=== PATIENT | male | born 1930 | race Caucasian/White ===

== ENCOUNTER 2018-04-01 | Inpatient (IN) | payer OTHER ==
[~2018-04-01] MED LIST: ADVAIR 250/501 EA INH; AMBIEN10 M1 PO; COUMADIN3 M1 PO; FLOMAX0.4 MG PO; HYZAAR 12.5 MG-1 TA1 PO; TRAMADOL HCL50 MG PO; ZOCOR20 MG PO
--- NOTE | ~2018-04-01 | PR ---
[place], [place] PROGRESS NOTE NAME: MARILYN MIXON UNIT #: [id number] ROOM: 316 DOCTOR: PRANEETH PUGA CNP BIRTHDATE: [birth year] DOS: 04/05/2018 CHIEF COMPLAINT: "I'm going home today." SUMMARY OF VISIT: The patient was interviewed as he sat in the dining area. He reports that he slept well last night. He reports that his appetite is good. He denies any depression or anxiety symptoms. He denies feeling agitated. He does continue to perseverate on the fact that he is going home with his daughter today and that he will call his family doctor to discharge him if I will not do so. MENTAL STATUS EXAMINATION: He is alert and oriented to person, place and time with some memory gaps. No adelfo or hypomania noted. No paranoia or delusions noted. No auditory or visual hallucinations noted. His mood was euthymic. No anxiety noted. PLAN: We will increase the patient's Namenda to 5 mg in the morning and 10 mg at bedtime. Plan for discharge on Friday. I will continue to engage the patient in individual and foy milieu activity. Continue on safety precautions and plan to return to the least restrictive environment when psychiatrically stable. Praneeth Puga CNP CM:PNTRANS [id number] PRANEETH PUGA CNP 04/05/182051 interface
--- NOTE | ~2018-04-01 | PR ---
[place], [place] PROGRESS NOTE NAME: MARILYN MIXON UNIT #: [id number] ROOM: 316 DOCTOR: PRANEETH PUGA CNP BIRTHDATE: [birth year] DOS: 04/04/2018 CHIEF COMPLAINT: "I am doing well." SUMMARY OF THE VISIT: The patient was interviewed as he was lying in his bed in his room. He reports that he slept well last night. He feels okay. He denies feeling anxious or depressed. He reports that his appetite is good. Staff reports that he has displayed no behaviors. He does, however, continue to isolate in his room at times. He has displayed some confusion while engaging in conversation. He reports to the staff that he would like to make a pillow and have it patented. MENTAL STATUS EXAMINATION: The patient is alert and oriented to person, place and time with some memory gaps. He is pleasant and cooperative with me. There are no signs of adelfo or hypomania. No delusions or paranoia noted. No auditory or visual hallucinations noted. His speech was clear with normal tone and rate. His eye contact was good. We will plan to increase his Exelon to 3 mg twice a day. We will continue to encourage the patient to engage in individual and foy milieu activity. We will continue fall and safety precautions. We will plan to return the patient to the least restrictive environment once he is considered psychiatrically stable. Praneeth Puga CNP CM:PNTRANS [phone] PRANEETH PUGA CNP 04/05/18 0403 interface
--- NOTE | ~2018-04-01 | DS ---
[place], [place] DISCHARGE SUMMARY NAME: MARILYN MIXON UNIT #: [id number] ROOM: 316 DOCTOR: FRED BARNETT MD BIRTHDATE: [birth year] DOS: 04/06/2018 CHIEF COMPLAINT: "I am going home today even if I have to walk." HISTORY OF PRESENT ILLNESS: This is an 87-year-old white male who was recently discharged from [facility] in [place]. He was receiving skilled care there and returned home with his daughter to whom he resides with. The patient was having increased behaviors well at [facility] and the family refused to admit him to the unit at that time and decided instead to take him home. His behaviors continued to escalate, however, at home and the daughter was having to call or take him to the Emergency Room daily. Most recently, he became so physically combative that she took him to the Emergency Room at [facility]. He was very erratic there and he was very confused. He was medically cleared and then sent to the unit for further psychiatric stabilization. SUMMARY OF THE HOSPITAL COURSE: The patient was admitted to the unit where he was started on Exelon capsules 1.5 mg twice daily, Celexa, and trazodone were discontinued in lieu of Remeron 15 mg at bedtime and he was also started on Namenda and the dose was increased accordingly. He tolerated these medications changes well. Exelon was eventually stabilized at 3 mg twice daily while Namenda at 15 mg a day, Remeron remained at 15 mg at bedtime. The patient had improved sufficiently to be discharged back into the daughter's care. Daughter did not want him placed into a prison, which is probably the most safest environment for him to be admitted to given the severity of his confusion. The patient was tolerating the medications well at the time of discharge: MENTAL STATUS: At the time of discharge, the patient was alert and oriented to person, possibly place and that he did not realize he was in the hospital, but not the name of the hospital. He was not oriented to time. Mood was relatively euthymic. Affect appropriate. There is no adelfo, hypomania or gross psychosis. He did process information slowly and short term memory was exceedingly poor. DISCHARGE DIAGNOSES: Intermittent explosive disorder, major depression, recurrent and Alzheimer dementia. DISPOSITION: The patient is returning home. His prescriptions have been escribed to the [facility] [place]. At the time of discharge, there was no acute medical issue and psychiatrically he was stable. [place], [place] DISCHARGE SUMMARY NAME: MARILYN MIXON UNIT #: [id number] ROOM: [facility] DOCTOR: FRED BARNETT MD BIRTHDATE: [birth year] FRED BARNETT MD CM:DISCHARG [id number] FRED BARNETT MD 04/06/18 1014 interface
--- NOTE | ~2018-04-01 | EKG ---
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
--- NOTE | ~2018-04-01 | WRIGHTHP ---
[place], [place] PATIENT HISTORY AND PHYSICAL EXAM NAME: MARILYN MIXON UNIT #: [id number] ROOM: 316 DOCTOR: PRANEETH PUGA CNP BIRTHDATE: [birth year] DOS: 04/02/2018 REASON FOR ADMISSION: The patient is confused and combative. CHIEF COMPLAINT: "I am going home today, even if I have to walk". HISTORY OF PRESENT ILLNESS: This is an 87-year-old white male who was discharged from [facility] four days ago, where he was receiving skilled care. He returned home with his daughter with whom he resides. The patient was having increased behaviors while at [facility]. The family had refused to admit him to the unit at that time and decided to take him home. However, his behaviors continued to escalate. He continued to be combative, so he was brought to the Emergency Room yesterday at the [facility]. Due to the patient's erratic behavior is putting himself at risk for harm; therefore, the decision was made once he was medically cleared to admit him to the Behavioral Health Unit for inpatient stabilization. He will also be able to engage in individual and foy milieu activity and then will return to the least restrictive environment when psychiatrically stable. PSYCHIATRIC HISTORY: Per the chart and the patient has a history of Alzheimer's dementia; however, he is not on any type of medications for this. His daughter reports that he has had some significant losses in the last few months, which include losing his driving privileges. He had a stroke and he lost his . REVIEW OF PSYCHIATRIC SYMPTOMS: A. Anxiety. The patient denies any anxiety. B. Depression. The patient reports that he is not depressed. He reports that he is happy. C. Delirium. No delirium present. D. Psychosis. The patient denies any psychotic symptoms. E. Adelfo. The patient does not display any overt adelfo or hypomania at this time. A. Legal status: The patient has no legal charges pending. B. Psychiatric risk assessment: The patient has a documented history of Alzheimer dementia. C. Violence risk assessment: The patient has no history of violence. D. Suicide risk assessment: The patient has no history of suicidality, any protective factors. The patient voices willingness and really needs to get better and reports that he has a supportive family to help him. FAMILY AND SOCIAL HISTORY: The patient denies any significant family history, family history of mental illness. SOCIAL HISTORY: The patient denies any illicit drug or alcohol use. PAST MEDICAL HISTORY: The patient has a history of a TIA, hypertension, arthrosclerotic heart disease, AFib, chronic obstructive pulmonary disease, gastroesophageal reflux disease, idiopathic gout, osteoarthritis, acute kidney failure, benign prostate hyperplasia, aphasia, malaise. He has a presence of [place], [place] PATIENT HISTORY AND PHYSICAL EXAM NAME: MARILYN MIXON UNIT #: [id number] ROOM: [facility] DOCTOR: PRANEETH PUGA CNP BIRTHDATE: [birth year] bilateral knee replacements and aorta, coronary bypass graft. He also has history of depression. ALLERGIES: INCLUDE CODEINE, FLAGYL, BANANAS, AND MILK. MEDICATIONS: Most recently, the patient has been on trazodone 50 mg at bedtime and Celexa 20 mg daily. LABORATORY DATA: Hemoglobin A1c is slightly elevated at 6.2. His ammonia level was normal at 24. His B12 is elevated at 1197. Vitamin D is normal at 62.8. His urine appears clear at this time. His H and H 12.1 and 35.8. Sodium 139, potassium 4.4, glucose slightly elevated at 113. PHYSICAL EXAMINATION: General appearance; the patient is well-developed, well-nourished white male that appears his stated age. Appearance; he was pleasant and cooperative with me. His attitude; he reports a positive desire to get better, so that he can return to home. Motor activity: No motor agitation or retardation noted. Speech was normal tone and rate. Mood was calm. Affect congruent with mood. Thought processing is relatively intact. Thought content within normal limits. Thought perception; no thought perception issues noted. Language; he speaks Estonian. Intellectual functioning was within normal limits. Memory function is short term, intermediate, and long-term memory are intact as evidenced by that he is aware, where he is, where he came from and where he lived. Orientation: He is alert and oriented to person, place and time with some mild gaps noted. Insight is fair. Judgment is fair. ASSETS AND LIST OF STRENGTH: The patient has a positive attitude to get better and go home. He does have a positive support system with his family. WEAKNESSES: Weaknesses include current need for adjustment due to loss of spouse. DIAGNOSES: History of Alzheimer dementia, intermittent explosive disorder. ASSESSMENT AND PLAN: We will start Exelon capsules 1.5 mg twice daily. Also, start Remeron 15 mg at bedtime. We will engage the patient in individual and foy milieu activity. We will maintain fall and safety precautions. Plan to return the patient to the least restrictive environment once he is considered psychiatrically stable. [place], [place] PATIENT HISTORY AND PHYSICAL EXAM NAME: MARILYN MIXON UNIT #: [id number] ROOM: [facility] DOCTOR: PRANEETH PUGA CNP BIRTHDATE: [birth year] Praneeth Puga CNP CM:HISPHYS:PATIENT HISTORY AND PHYSICAL EXAMINATION [id number] PRANEETH PUGA CNP 04/02/18 1219 interface
[2018-04-01 15:08] VITALS: BP 116/70
[2018-04-01 15:51] LABS: BASO % 0.2 % (0.0-1.0); EOS # 0.1 10*3/uL (0.0-0.4); EOS % 1.3 % (1.0-4.0); HEMATOCRIT 35.8 % (42.0-52.0); HEMOGLOBIN 12.1 g/dl (14.0-18.0); LYMPH # 1.4 10*3/uL (1.3-4.4); LYMPH % 12.4 % (27.0-41.0); MEAN CELL VOLUME 100.8 fl (80.0-94.0); MEAN CORPUSCULAR HGB 34.1 pg (27.0-31.0); MEAN CORPUSCULAR HGB CONC 33.8 g/dl (33.0-37.0); MEAN PLATELET VOLUME 10.5 fl (9.6-12.3); MONO # 0.5 10*3/uL (0.1-1.0); MONO % 4.1 % (3.0-9.0); NEUT % 81.5 % (47.0-73.0); PLATELET COUNT AUTOMATED 185 10*3/uL (130-400); RED BLOOD COUNT 3.55 10*6/uL (4.50-5.90); RED CELL DISTRI WIDTH 13.4 % (0-14.5); WHITE BLOOD COUNT 11.1 10*3/uL (4.8-10.8)
[2018-04-01 16:06] LABS: ACETAMINOPHEN (TYLENOL) < 5.0 ug/ml (10-30); ALKALINE PHOSPHATASE 84 U/L (45-117); BUN 20 mg/dl (7-24); CHLORIDE 106 mmol/L (98-107); CREATININE 1.42 mg/dL (0.70-1.30); ETHYL ALCOHOL < 3.0 mg/dl (<3); LIPASE 58 U/L (73-393); POTASSIUM 4.4 mmol/L (3.5-5.1); SGOT/AST 32 IU/L (3-35); SGPT/ALT 23 U/L (12-78); SODIUM 139 mmol/L (136-145); TOTAL PROTEIN 6.2 gm/dL (6.4-8.2)
--- NOTE | 2018-04-01 18:07 | NUR ---
Pt daughter, Karthik Dominguez , stated that is where she can be reached, Pt daughter lives with the pt.
[2018-04-01 18:49] LABS: BILIRUBIN NEGATIVE (NEGATIVE); BLOOD NEGATIVE (NEGATIVE); CLARITY CLEAR (CLEAR); COLOR YELLOW (YELLOW); GLUCOSE NEGATIVE (NEGATIVE); KETONE NEGATIVE (NEGATIVE); LEUKO ESTERASE NEGATIVE (NEGATIVE); NITRITE NEGATIVE (NEGATIVE); PH 5.5 (5.0-9.0); UROBILINOGEN 0.2 E.U./dl (0.2-1.0)
[2018-04-01 18:55] LABS: BACTERIA TRACE; EPITHELIAL CELLS 0-2; RBC 0-2 rbc/hpf (0-2); WBC 0-2 wbc/hpf (0-5)
--- NOTE | 2018-04-01 18:55 | NUR ---
MARILYN MIXON a 87 year old M admitted via wheel chair from the EMERGENCY ROOM as a emergency 72 hr. hold admission. Arrived on unit at 1855. ALLERGIES: codeine, bananas, milk, flagyl. Vital signs are: 97.2-70-18 134/67. The client signed the following forms with stated understanding: Authorization For The Release of Medical Information, Clothing List, Consent to Voluntary Admission and Hospitalization, Consent and Release Forms/Receipt of Rights, Acknowledgement of Advance Directive Information, Behavioral Health Consent Form, and Informed Consent of Medications. Admitted under the services of Dr. ANIBAL PINEDA,[facility]. A search was conducted and hazardous articles were removed. Client was oriented to the unit. JOAQUIN VALLE
[2018-04-01 18:57] LABS: URINE AMPHETAMINES < 1000 (1000ng/ml); URINE BARBITURATES < 200 (200ng/ml); URINE BENZODIAZEPINES < 200 (200ng/ml); URINE CANNABINOIDS (THC) < 50 (50ng/ml); URINE COCAINE < 300 (300ng/ml); URINE METHADONE < 300 (300ng/ml); URINE OPIATES < 300 (300ng/ml); URINE PHENCYCLIDINE < 25 (25ng/ml)
[2018-04-01 18:58] VITALS: BP 134/67
--- NOTE | 2018-04-01 19:14 | NUR ---
CALL PLACED TO DAUGHTER ARLYN RIVAS TO CLARIFY MEDICATIONS THAT PATIENTIS CURRENTLY ON, [facility] GET UPDATED MEDICATION LIST. DAUGHTER WILL COME IN WITH HAND WRITTEN MEDICATION LIST.
[2018-04-01 19:38] VITALS: BP 134/67
[2018-04-01 20:00] VITALS: BP 134/67
--- NOTE | 2018-04-01 21:00 | NUR ---
Dr. Cunningham on floor and was then notified of patient's admission and consult for medical management. Dr. Cunningham came and examined patient.
--- NOTE | 2018-04-01 21:10 | NUR ---
Dr. Cunningham examining patient. This nurse showed him the skin tear on patient's left forearm and no new orders received at this time.
[2018-04-01] MEDS ORDERED: ELIQUIS2.5 M1 PO (21:24)
[2018-04-01] MEDS ORDERED: TRAZODONE50 MG PO (21:25)
[2018-04-01] MEDS ORDERED: CELEXA20 MG PO (21:27)
[2018-04-01] MEDS ORDERED: PREDNISONE5 MG PO (21:28)
[2018-04-01] MEDS ORDERED: LOPRESSOR25 MG PO (21:29)
[2018-04-01] MEDS ORDERED: KLOR-CON M2020 ME1 PO (21:30)
[2018-04-01] MEDS ORDERED: APRESOLINE25 MG PO (21:31)
[2018-04-01] MEDS ORDERED: OLANZAPINE2.5 MG PO (21:32)
[2018-04-01] MEDS ORDERED: LOSARTAN POTASS50 M1 PO (21:33)
[2018-04-01] MEDS ORDERED: KEPPRA500 MG PO (21:33)
[2018-04-01] MEDS ORDERED: ALLOPURINOL300 MG PO (21:35)
[2018-04-01] MEDS ORDERED: PRAVACHOL40 MG PO (21:35)
[2018-04-01] MEDS ORDERED: TAMSULOSIN HCL0.4 MG PO (21:36)
[2018-04-01] MEDS ORDERED: BREO ELLIPTA 11 EACH INH (21:36)
[2018-04-01] MEDS ORDERED: ATIVAN0.5 MG PO (21:37)
[2018-04-01] MEDS ORDERED: CEFUROXIME AXE250 MG PO (21:38)
[2018-04-01] MEDS ORDERED: ASPIRIN ADULT L81 M1 PO (21:38)
[2018-04-01] MEDS ORDERED: GOOD NEIGHBOR P20 MG PO (21:38)
--- NOTE | 2018-04-01 23:33 | NUR ---
SHAILA NUÑEZ NOTIFIED OF ADMISSION.
--- NOTE | 2018-04-02 06:36 | NUR ---
Patient was awake throughout shift.
--- NOTE | 2018-04-02 06:43 | NUR ---
MARILYN MIXON [id number] Please refer to the physician's history and physical for past medical history, comorbid conditions, and allergies. Diagnosis: INTERMITTENT EXPLOSIVE DISORDER Spencer Score: 18,AT RISK WOUND DESCRIPTIONS: Location of the wound: Left forearm Type of wound: skin tear Thickness: Partial Size: 0.5cm x 6.1cm x 0.1cm Tunneling: none Undermining: none Sinus Tract: none Presence of Exudate: Serosanguineous Amount: Light Color: Red Odor: None Periwound Skin Appearance: Normal Wound edges: approximated Pain (associated with wound): none at time of assessment How does patient state this happened? pt unclear on how this happened Surface the patient is resting on: Proform SKIN PREVENTION RECOMMENDATION: 1. Pressure redistribution support surface as appropriate 2. Elevate heels 3. Remove boots/TEDS every shift and reapply 4. Head of bed 30 degrees as tolerated 5. Assess nutrition and hydration 6. Manage moisture 7. Avoid the use of containment devices while in bed 8. Use absorptive products on surfaces limit layers of linens on bed 9. Turn and reposition every 1-2 hours in bed and every 1 hour in chair as tolerated 10. Weight shifts every 15 minutes while up in chair 11. Offloading with pillows or device to keep heels elevated off bed 12. Monitor skin at least every shift 13. Inspect under medical devices twice a day WOUND TREATMENT RECOMMENDATIONS: skin tear guidelines: Cleanse left forearm with nss and apply sureprep around the wound hydrogel to wound bed and cover with optifoam gentle.
[2018-04-02 07:26] LABS: CHOLESTEROL 123 mg/dL (<200); HDL CHOLESTEROL 37 mg/dl (40-60); LDL CHOLESTEROL 65 mg/dL (9-159); TRIGLYCERIDES 104 mg/dl (<150); VLDL CHOLESTEROL 21 mg/dL (6-40)
[2018-04-02 07:49] VITALS: BP 109/63
--- NOTE | 2018-04-02 08:30 | NUR ---
Treatment Plan meeting with Ольга AGUIRRE, RN, AT and [facility]. Plan for discharge next week. Will call family and discuss discharge planning.
--- NOTE | 2018-04-02 08:51 | NUR ---
PATIENT DRANK 120CC OF MILK AND HAS ALLERGIES TO MILK. PATIENT STATES THAT HE GETS A RASH. DENIES ANY ITCHING OR DIFFICULTY BREATHING OR SWALLOWING. DR. MORALES NOTIFIED. DIET ORDER CHANGED WITH LIST OF ALLERGIES. WILL CONTINUE TO MONITOR.
[2018-04-02 09:38] LABS: VITAMIN D, 25-HYDROXY 62.8 ng/mL (30-100)
--- NOTE | 2018-04-02 09:45 | NUR ---
Dr. Aj notified of wound care recommendations.
--- NOTE | 2018-04-02 10:57 | NUR ---
Spoke with Pt. Daughter Mayela and advised that plan is for discharge next week. Plan is for patient to return home with his daughter.
--- NOTE | 2018-04-02 11:33 | NUR ---
AM GROUP THERAPY PT DID NOT ATTEND MORNING GROUP THERAPY. PT WAS IN BED SLEEPING AND THE NURSES REPORT INDICATED THAT HE GOT NO SLEEP LAST NIGHT. WILL ATTEMPT TO ASSESS PT AND SET GOALS THIS AFTERNOON.
--- NOTE | 2018-04-02 11:36 | NUR ---
PHYSICAL THERAPY PAtient respectfully declines PT this date. Thank you for this referral. Rosey French,PT
--- NOTE | 2018-04-02 11:38 | NUR ---
Occupational Therapy evaluation attempted this date. Patient respectfully declines at this time. Will follow up at a later date/time. Thank you for this referral, Leonela Robison OTR/L
--- NOTE | 2018-04-02 13:16 | NUR ---
CALLED INSURANCE AND PT WAS APPROVED FROM 04/01-04/06 THEN PT INSURANCE TERMS. AUTH NUMBER IS [id number].
--- NOTE | 2018-04-02 14:06 | NUR ---
CALLED DAUGHTER AND TALKED WITH HER ABOUT PT INSURANCE TERMING AFTER 04/06. SHE STATES SHE DOES NOT KNOW WHY IT WOULD AND WILL CALL THEM TO GET ANSWERS.
--- NOTE | 2018-04-02 15:24 | NUR ---
PM GROUP THERAPY PT DID NOT ATTEND AFTERNOON GROUP THERAPY. PT WAS IN BED SLEEPING WITH COVERS PULLED OVER HIS HEAD. MILIEU REPORTED PT DIDN'T EVEN WANT TO GET UP FOR LUNCH. WILL ATTEMPT ASSESSMENT AND GOALS TOMORROW AM.
--- NOTE | 2018-04-02 15:43 | NUR ---
psychosocial hx completed this date.
--- NOTE | 2018-04-02 16:00 | NUR ---
PATIENT IS ALERT AND ORIENTED TO PERSON, PLACE, TIME AND SITUATION WITH INTERMITTANT. MOOD IS IRRITABLE. DENIES ANY HALLUCINATIONS, DELUSIONS, HI/SI OR PAIN. 1 PERSON STAND BY WITH ACTIVITIES OF DAILY LIVING, CONTINENT OF BOWEL AND BLADDER. SET UP FOR MEALS, INTAKES ARE FAIR WITH ADEQUATE FLUIDS. MEDICATION COMPLAINT WITH EDUCATION PROVIDED. Q 15 MINUTE SAFETY CHECKS MAINTAINED. ASSISTED PATIENT WITH TOILETING NEEDS. SHOWER UP AT SINK. PATIENT JESSICA HE IS LEAVING THE HOSPITAL TO GO TO [facility] FOR [facility] D[facility], WANT DAUGHTER CALLED. PATIENT ADVISED/INFORMED THAT HE WAS IN THE HOSPITAL AND THE DOCTOR DID NOT DISCHARGE HIM YET. PATIENT CONTINUED TO GATHER BELONGING PRIOR TO LEAVING ROOM. PATIENT SELF PROPELLED TO DINING ROOM, DID NOT LIKE WHAT WAS ON TV THEN PROCEEDED DOWN THE COOK TO THE DOORS, ATTEMPTING TO EXIT THE BUILDING AND PRESS NUMBERS ON ALONSO PAD. ONE ON ONE PROVIDED, REDIRECTION PROVIDED AND INEFFECTIVE. PATIENT ASSISTED BACK TO DINING ROOM AND TOLD HIM IT WAS TIME FOR HIS MEDICATIONS. PRN ATIVAN 1MG GIVEN PO AT THIS TIME. CONTINUE TO MONITOR MOOD/AGGRESSION AND PROVIDE ONE ON ONE AND REDIRECTION. P: ATTEMPTING TO EXIT BUILDING I: TOILETING NEEDS PROVIDED, REDIRECTION, ONE ON ONE, CHANGE OF ENVIRONMENT R: INFEFFECTIVE P: PRN ATIVAN 1MG PO GIVEN AT THIS TIME.
--- NOTE | 2018-04-02 16:40 | NUR ---
PATIENT CONTINUES TO BE ANGRY, TELLING NURSE HE IS GETTING OUT OF HERE. PATIENT POUR URINAL IN HIS BED. ATTEMPTING TO TAKE PERSONAL ALARM OFF BED AND STATED HE WAS GOING TO THROW IT THROUGH THE WINDOW. PATINT DROPPED URINAL REQUIRING ASSISTANCE BE NURSE TO PICK URINAL UP. PATIENT ASSISTED BACK TO DINING ROOM. PATIENT STARTED EATING DINNER.
--- NOTE | 2018-04-02 17:05 | NUR ---
PRN ATIVAN SLIGHTLY EFFECTIVE, WILL CONTINUE TO MONITOR MOOD/BEHAVIORS.
--- NOTE | 2018-04-02 17:33 | NUR ---
AFTER DINNER PATIENT STARTED EATING PIE, REQUESTING FOR ICE CREAM, NURIS CALLED, INFORMED PATIENT OF ALLERGIES AND THAT WE COULD GET TIME SERBERT. PATIENT SELF PROPEL TO THE EXIT DOOR, PRESSING ON ALONSO PAD, PATIENT REDIRECTED AWAY FROM DOOR. PATIENT REQUESTING TO CALL DAUGHTER. CALL PLACED TO DAUGHTER, MOTHER INFORM STAFF SHE WAS ON HER WAY TO HOSPITAL TO VISIT. PATIENT INFORMED. PATIENT SITTING AT TABLE EATING APPLE PIE AND SERBERT AT THIS TIME.
--- NOTE | 2018-04-02 18:02 | NUR ---
PATIENT VISITING WITH DAUGHTER, STARTED TO DEMANDING THAT HE WAS LEAVING. SELF PROPELLING TO THE DOOR. PATIENT REDIRECTED TO COME BACK TO THE DINING ROOM TO VISIT WITH DAUGHTER. THAN PATIENT WHEN OVER TO SINK, GETTING SEVERAL PIECES OF PAPER TOWELS STATING THE TABLE NEEDED WIPED OFF. TABLES CLEANED OFF FOR PATIENT. THEN PATIENT WHEN OVER TO ALARM ON WALL FOR STAFF ASSISTANCE. PATIENT REDIRECTED AT THIS TIME BY NURSE. PATIENT REQUESTING FOR STEAK. OFFER PIZZA. ORDER WAS PLACE. ENCOURAGED PATIENT TO SIT AND VISIT WITH DAUGHTER. PATIENT WATCHING TV WITH DAUGHTER AT THIS TIME.
--- NOTE | 2018-04-02 18:30 | NUR ---
PATIENT REQUESTING TO LAY DOWN. PATIENT ASSISTED TO ROOM, CHANGED INTO GOWN AND ASSISTED TO BED ALL ALARMS IN PLACE.
[2018-04-02 20:06] VITALS: BP 121/73
[2018-04-02 20:08] VITALS: BP 121/73
--- NOTE | 2018-04-03 00:46 | NUR ---
P: CONFUSION, MEDICATION COMPLIANCE. I: REORIENT AND REDIRECT, PROVIDED 1:1 TO EXPRESS FEELINGS, EDUCATE ON HS MEDICATIONS. R: POSITIVE FEEDBACK ON MEDICATION EDCUATION, MEDICATION COMPLIANT WITHOUT DIFFICULTY. PATIENT ALERT AND ORIENTED X3. P:CONTINUE TO REORIENT AND REDIRECT NEEDED. PROVIDE 1:1 TO EXPRESS FEELINGS. ENCOURAGE MEDICATION COMPLIANCE.
--- NOTE | 2018-04-03 01:05 | NUR ---
24 HOUR CHART CHECK COMPLETED.
--- NOTE | 2018-04-03 05:41 | NUR ---
PATIENT OBSERVED ON Q 15 MIN CHECKS TO HAVE SLEPT APPROX 6 HOURS WITH X3 AWAKENINGS TO ASK STAFF FOR VARIOUS WANTS AND DEMANDS (BLANKET, LOTION, FEET TO BE COVERED UP). NO SIGNS OR SYMPTOMS OF DISTRESS NOTED.
[2018-04-03 07:24] VITALS: BP 118/72
--- NOTE | 2018-04-03 08:00 | NUR ---
Recommend follow up for wound care in outpatient setting patient refused at this time.
--- NOTE | 2018-04-03 08:34 | NUR ---
CALLED DTR REGARDING LISTED MILK ALLERGY. PER DTR, PT DRINKS MILK AND CONSUMES MILK RELATED PRODUCTS AT HOME AND THAT ALLERGY IS ACTUALLY A MILD LACTOSE INTOLERANCE THAT "JUST GIVES HIM GAS." ALLERGY SCREEN UPDATED WITH SUPPLEMENTAL INFORMATION.
--- NOTE | 2018-04-03 08:41 | NUR ---
SHIFT CHART CHECK COMPLETED.
--- NOTE | 2018-04-03 10:55 | NUR ---
PHYSICAL THERAPY PAtient evaluated on three, full evaluation to follow. Continue with PT as per plan of care with fall, unit three and recent aggitated behavior ( no inappropiate behavior noted with evaluation at this date). Will require 24 hour family assist and home health RN and PT with aides prn. PAtient is moderate complexity via chart review, tests and evaluation: [id number]. Thank you for this referral. Rosey French,PT
--- NOTE | 2018-04-03 11:09 | NUR ---
Mr Holcomb was evaluated by occupational therapy this date to assess his ability to complete ADL's and functional transfers. Mr Holcomb requests to be called [facility]. He requires supervision for bedmobility with head of bed elevated. He has fair standing endurance and requires min assist with lower body ADL's. Lexx usually uses a credit or loans officer and sock aide at home secondary to back pain. Continued occupational therapy is recommended while the patient is in the hospital to improve his dynamic balance, endurance, and ADL independence. Discharge home with family assist and C. Judy Nelson OTR/L
--- NOTE | 2018-04-03 11:14 | NUR ---
Left Message for Pt. Daughter on Home Phone to discuss discharge Planning.
--- NOTE | 2018-04-03 11:42 | NUR ---
AM GROUP THERAPY PT ENTERED GROUP LATE DUE TO OT. PT PARTICIPATED IN GROUP ACTIVITIES. PT EXHIBITED NO AGGRESSION OR AGITATION DURING GROUP. PT WAS TALKATIVE WITH STAFF AND PEERS. PT WILL CONTINUE TO ATTEND AND PARTICIPATE IN GROUP.
--- NOTE | 2018-04-03 12:50 | NUR ---
PT ALERT AND ORIENTED TO PERSON AND TIME THIS SHIFT.(P) STATES HE IS AT [facility] AND THAT HE IS HERE BECAUSE HE "BROKE MY BACK, AND MY NECK, AND MY LEG, AND MY HEAD." ST/LT MEMORY GAPS NOTED. REQUIRES ENCOURAGEMENT FROM STAFF TO COMPLETE SIMPLE TASKS INDEPENDENTLY. HOWEVER, PT HAS BEEN PLEASANTLY CONFUSED THIS SHIFT WITHOUT AND AGGRESSION, AGITATION, OR COMBATIVE BEHAVIORS. MEDICATION COMPLIANT WITHOUT DIFFICULTY. (I) PT REORIENTED TO ELCH BUT NOT RECEPTIVE TO REALITY PRESENTATION REGARDING MULTIPLE RECENT BROKEN BONES. (P) ENCOURAGE GROUPS AND REORIENT NEEDED.
--- NOTE | 2018-04-03 15:22 | NUR ---
PER MICHELE FROM [facility], PT APPROVAL HAS BEEN EXTENDED UNTIL Apr WITH NEXT REVIEW DATE IS Apr WITH MICHELE AT [phone].
--- NOTE | 2018-04-03 15:23 | NUR ---
Referral to [facility].
--- NOTE | 2018-04-03 15:35 | NUR ---
MUSIC AND PUZZLES PT CHOSE NOT TO ATTEND AFTERNOON GROUP THERAPY. HIS NURSE TRIED TO ENCOURAGE HIM TO ATTEND BUT PT CHOSE TO STAY IN BED AND NAP.
--- NOTE | 2018-04-03 16:59 | NUR ---
WOUND CARE COMPLETED FOR SKIN TEAR TO LEFT FA. PT TOLERATED WELL.
--- NOTE | 2018-04-03 18:02 | NUR ---
PT HAS BEEN NAPPING INTERMITTENTLY ALL T/O THE DAY DESPITE ENCOURAGEMENT FROM STAFF. REFUSED AFTERNOON GROUP WELL. PERIODS OF CONFUSION WITH ST MEMORY GAPS CONTINUE.
--- NOTE | 2018-04-03 18:22 | NUR ---
UPDATE GIVEN TO DTR AT THIS TIME. ALL QUESTIONS ANWSERED.
[2018-04-03 19:44] VITALS: BP 131/71
--- NOTE | 2018-04-03 21:32 | NUR ---
P-MEMORY GAPS, CONFUSION, I-ACCESS ORIENTATION, PROVIDED 1:1, PROVIDE REORIENTATION, PROVIDE PROMPTS & CUES, ADMINISTER HS MEDICATIONS R-PT VERBAL & PLEASANT, ALERT & ORIENTED TO PERSON & TIME, RECEPTIVE TO REORIENTATION WITH MEMORY GAPS, DENIES FEELING DEPRESSED. STATED HE HAD A WONDERFUL DAY & IS FEELING GREAT. RECEPTIVE TO PROMPTS & CUES, COMPLIANT WITH HS MEDS TAKING THEM WHOLE. PT STATED THAT HE IS GOING TO MAKE AN INVENTION OF A [facility] WITH A 4 INCH HOLE IN THE [facility] SO THEY COULD GO TO BED WITH THEIR JEWELRY ON. STATED THAT HE IS GOING TO MAKE ABOUT $5,000 FOR HIS INVENTION. P-CONTINUE TO MONITOR FOR CONFUSION, ORIENTATION & SLEEP, REDIRECT NEEDED
--- NOTE | 2018-04-03 22:10 | NUR ---
24 HR chart check completed.
--- NOTE | 2018-04-04 06:37 | NUR ---
PT HAS SLEPT THROUGHOUT THE NIGHT PAST 2330.
[2018-04-04 07:34] VITALS: BP 136/69
[2018-04-04 07:35] VITALS: BP 136/69
--- NOTE | 2018-04-04 09:12 | NUR ---
PT WAS MEDICATION COMPLIANT WITHOUT DIFFICULTY THIS MORNING. ALERT AND ORIENTED WITH (P) PERIODS OF CONFUSION AND MEMORY GAPS NOTED. PT STATING "I'M ALL BETTER, MY DAUGHTER WILL BE PICKING ME UP TODAY. NAPPING IN BED THIS MORNING AFTER BREAKFAST (I) DESPITE ENCOURAGEMENT FROM STAFF. (R) REMAINS ISOLATIVE TO ROOM. TOOK OFF ALL HIS CLOTHES AND IS LAYING IN BED WITH A BRIEF OFF, REFUSED TO ALLOW STAFF TO ASSIST HIM IN GETTING DRESSED. (P) CONTINUE TO ENCOURAGE GROUP THERAPY AND SOCIAL INTERACTIONS WITH PEERS THROUGHOUT THE DAY. REORIENT NEEDED.
--- NOTE | 2018-04-04 12:52 | NUR ---
DTR IN AT THIS TIME FOR VISIT. PT BECOMING INCREASINGLY CONFUSED AND THINKS HE IS GOING HOME WITH DTR TODAY DESPITE REORIENTATION MULTIPLE TIMES WHICH IS ONLY EFFECTIVE FOR <3 MINUTES. PT ALSO VOICING GRANDIOSE DELUSIONS THAT HE WAS JUST ON THE PHONE WITH THE PATENT OFFICE AND INVENTED A NEW PILLOW. PT ALSO TELLING DTR "I WAS JUST ON THE PHONE TALKING TO THE PUMP STITCHER DELMI I AM SUEING ABOUT FOUR PEOPLE WHICH SHOULD BRING IN ABOUT SIXHUNDRED MILLION. I WANT TO GIVE FIVEHUNDRED MILLION TO EACH OF YOU KIDS AND DONATE THE REST." REALITY PRESENTATION ONLY AGITATED PT. HAVE REDIRECTED PT BACK TO VISITING ROOM 5+ TIMES DUE TO CONFUSION. WILL CONTINUE TO MONITOR.
--- NOTE | 2018-04-04 13:16 | NUR ---
DAUGHTER LEFT EARLY DURING VISITATION DUE TO PATIENTS INCREASING AGITATION AND CONFUSION. STAFF NO LONGER ABLE TO REDIRECT AND DIVERT PATIENT BACK TO VISIT.
--- NOTE | 2018-04-04 15:49 | NUR ---
PT RESTING IN BED WITH EYES OPEN AT THIS TIME. ENCOURAGED TO PUT HIS CLOTHES BACK ON HE OFTEN REMOVES CLOTHING AFTER ENTERING HIS ROOM.
--- NOTE | 2018-04-04 16:12 | NUR ---
PT TOOK OFF DRESSING TO LEFT FA ST. WOUND CARE COMPLETED PER ORDERS. NEW DRESSING APPLIED.
[2018-04-04 19:15] VITALS: BP 135/75
--- NOTE | 2018-04-04 23:27 | NUR ---
P: PLEASANTLY CONFUSED. ORIENTED TO PERSON AND TIME ONLY. I: REORIENT PATIENT TO PLACE AND SITUATION FREQUENTLY. PROVIDE MEDICATION AND EDUCATION. Q15 MINUTE CHECKS MAINTAINED FOR SAFETY. R: PATIENT WOULD REMEMBER REORIENTATION FOR A FEW MINUTES AND WOULD BECOME CONFUSED AGAIN. PATIENT MEDICATION COMPLIANT AND VERBALIZED UNDERSTANDING OF MEDICATIONS. P: CONTINUE TO REORIENT PATIENT WHEN NECESSARY. PROVIDE EDUCATION WITH EACH MED PASS. Q15 MINUTE CHECKS MAINTAINED FOR SAFETY. FALLING STAR PROGRAM MAINTAINED WITH ALARMS ACTIVATED AND ON PATIENT. SEIZURE PRECAUTIONS IN PLACE.
--- NOTE | 2018-04-05 00:57 | NUR ---
24 HR chart check completed.
--- NOTE | 2018-04-05 04:50 | NUR ---
Q15 MINUTE CHECKS MAINTAINED THROUGHOUT THE NIGHT. PATIENT SLEPT APPROXIMATELY 8 HOURS OF UNINTERRUPTED SLEEP.
[2018-04-05 07:27] VITALS: BP 142/75
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
--- NOTE | 2018-04-05 12:40 | NUR ---
P: PT BELEIVES HE CAN GO HOME TODAY, SITTING BY MAIN ENTRAINCE WAITING FOR OTHERS TO COME THROUGH DOOR TO GET OUT OF IT. I: STAFF REDIRECTING WITH 1:1 PT, CALLED HIS DAUGHTER TO TALK TO HIM PER HIS REQUEST, TOILETING, LUNCH, DISTRACT R: PT BECAME MORE AGITATED, INCREASED EXIT SEEKING, P: PROVIDE DISTRACTION, DECREASE STIMULATION
--- NOTE | 2018-04-05 13:31 | NUR ---
P: PT COMBATIVE AT DOORWAYS ATTEMPTING TO EXIT DOORS KICK AT STAFF I:DARRYL ALMAZAN, DUE TO REFUSES PO R: PT TOLERATED WITHOUT DIFFICULTY P: CONTINUE TO MONITOR FOR MEDICAITON EFFECTIVENESS
--- NOTE | 2018-04-05 14:27 | NUR ---
PT RESTING QUIETLY IN ALFIE CHAIR, PER HIS REQUEST AT THIS TIME. DARRYL SMYTH
--- NOTE | 2018-04-05 15:44 | NUR ---
Shift chart check completed. PT UP TO WHEEL CHAIR PROPELLING SELF SHORT DISTANCES
--- NOTE | 2018-04-05 15:59 | NUR ---
PM GROUP, STORY, ART PT ATTENDED BUT CHOSE NOT TO PARTICIPATE.PT DID INTERACT WITH STAFF WHEN STAFF READ THE STORY. PT PLEASANT WITH NO SEXUALLY INAPPROPRIATE REMARKS OR ACTIONS. PT WILL CONTINUE TO ATTEND AND BE ENCOURAGED TO PARTICIPATE IN FUTURE GROUP SESSIONS.
--- NOTE | 2018-04-05 17:52 | NUR ---
P:PT AGGRESSIVE WITH STAFF WHEN DAUGHTER IN FOR VISIT. PT SAW DAUGHTER AND IMMEDIATLEY ATTEMPTED TO TAKE HER TOWARD THE EXITS STATING, "MY DR SAID I COULD LEAVE" I: ATTEMPTED TO REORIENT PT WITH ASSIST OF DAUGHTER EXPLAINING THAT HE WAS NOT TO LEAVE AT THIS TIME AND THAT HE WAS STILL TO BE HERE FOR THE NIGHT DUE TO HIS MENTAL HEALTH WAS NOT SAFE TO BE AT HOME AT THIS TIME. R: PT BEGAN YELLING WOULD NOT ACKNOWELEDGE HIS DAUGHTER, AND STATED I CALLED MY DOCTOR TODAY, HE SAID I COULD LEAVE, (PT DID BELIEVE HE SPOKE WITH HIS PCP DUE TO HE HAD USED HIS HAND A PHONE SEVERAL TIMES THROUGHOUT THE SHIFT) DAUGHTER ASSISTED OFF UNIT TO INCREASE BEHAVIOR AND SHE DID NOT WANT TO CONTINUE THE VISIT. PT THEN ATTEMPTED TO LILLY HIS CHAIR INTO THIS NURSE LEG WITH PURPOSE, PT YELLED AT STAFF STATING "YOU ARE ALL WHORES" P: PT GIVEN IM GEODON DUE TO INCREASED ANXIETY AND AGITATION AT THIS TIME.
[2018-04-05 19:54] VITALS: BP 148/72
--- NOTE | 2018-04-05 22:18 | NUR ---
P- PATIENT HAS INTERMITTENT CONFUSION WITH DELUSIONS. PATIENT IS ALERT TO PERSON,PLACE AND TIME. PATIENT STATED HE CALLED HIS DAUGHTER AND TOLD HER TO BRING THE HELICOPTER TOMORROW SO HE COULD GO HOME. I-REORIENT PATIENT TO TREATMENT PLAN,REORIENT PATIENT TO REALITY AND CONTINUE TO COMMUNICATE WITH PATIENT 1:1. PROVIDE MEDICATIONS ORDERED. R-PATIENT WAS COMPLIANT WITH HIS MEDICATIONS. PATIENT CALM AT THIS TIME. P-CONTINUE TO MONITOR BEHAVIOR AND REDIRECT NEEDED.
--- NOTE | 2018-04-06 00:21 | NUR ---
24 HR chart check completed.
--- NOTE | 2018-04-06 06:11 | NUR ---
PATIENT SLEPT APPROX. 8 HOURS THROUGHOUT SHIFT.
--- NOTE | 2018-04-06 07:00 | NUR ---
OT NOTE Attempted to see pt this A.M. for OT session and upon arrival pt was supine in bed. Pt identified by name and . Pt declined session at this time stating "I am going home today so don't bother with me anymore today." Will check back at a later time/date. TARSHA Joyce/Major
[2018-04-06 07:24] VITALS: BP 144/71
--- NOTE | 2018-04-06 08:30 | NUR ---
Treatment Plan meeting with Dr. Riley, RN, AT and Alterations Workroom Clerk. Plan for discharge today
--- NOTE | 2018-04-06 09:10 | NUR ---
PHYSICAL THERAPY Patient is still in bed and would like to take her morning medications before doing therapy. Will check back later. This was a 8:40 AM. CHICHO TIJERINA SANFORIZING MACHINE OPERATOR
[2018-04-06] MEDS ORDERED: MEMANTINE HCL10 MG PO (09:39)
[2018-04-06] MEDS ORDERED: MIRTAZAPINE15 M2 PO (09:39)
[2018-04-06] MEDS ORDERED: NAMENDA-5 PO (09:39)
[2018-04-06] MEDS ORDERED: RIVASTIGMINE TAR3 M1 PO (09:39)
--- NOTE | 2018-04-06 11:45 | NUR ---
AM GROUP, GAES PT UNABLE TO ATTEND DUE TO PREP FOR DISCHARGE. PT WILL BE DISCHARGED FROM U TODAY.
--- NOTE | 2018-04-06 11:59 | NUR ---
Spoke with Bri at [facility]. Advised of Patient discharge today. Bri states that she will try for SOC date 04/07/18. Faxed Updates to [facility].
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
--- NOTE | 2018-04-06 14:26 | NUR ---
REVIEWED PAPER WORK WITH PATIENT, TOILETED AND ASSISTED VIA EMS SERVICES TO [facility] FOR TRANSPORT HOME AT THIS TIME.
--- NOTE | 2018-04-06 14:40 | NUR ---
PHYSICAL THERAPY CO-SIGN I approve of the Phyical Therapy notes written above. LAST CHU PT
--- NOTE | 2018-04-07 07:51 | NUR ---
OCCUPATIONAL THERAPY CO-SIGN I approve of the Occupational Therapy notes written above. TRISTIAN MI OTR/Major
== END 2018-04-06 14:26 | disposition other institution (70) | DRG 56 ==
PROVIDERS: Physician Assistant; ADMIT Psychiatry & Neurology Psychiatry
DX: G30.9 Alzheimer's disease, unspecified (principal); N17.0 Acute kidney failure with tubular necrosis; F23 Brief psychotic disorder; F33.9 Major depressive disorder, recurrent, unspecified; I25.810 Atherosclerosis of coronary artery bypass graft(s) without angina pectoris; F63.81 Intermittent explosive disorder; R73.9 Hyperglycemia, unspecified; I10 Essential (primary) hypertension; J44.9 Chronic obstructive pulmonary disease, unspecified; K21.9 Gastro-esophageal reflux disease without esophagitis; M10.00 Idiopathic gout, unspecified site; M19.90 Unspecified osteoarthritis, unspecified site; I48.0 Paroxysmal atrial fibrillation; N40.0 Benign prostatic hyperplasia without lower urinary tract symptoms; D53.9 Nutritional anemia, unspecified; D72.825 Bandemia; Z96.653 Presence of artificial knee joint, bilateral; F02.80 Dementia in other diseases classified elsewhere, unspecified severity, without behavioral disturbance, psychotic disturbance, mood disturbance, and anxiety; Z88.1 Allergy status to other antibiotic agents; Z88.8 Allergy status to other drugs, medicaments and biological substances; Z91.018 Allergy to other foods; Z86.73 Personal history of transient ischemic attack (TIA), and cerebral infarction without residual deficits; Z95.1 Presence of aortocoronary bypass graft; Z95.5 Presence of coronary angioplasty implant and graft; Z79.899 Other long term (current) drug therapy

== ENCOUNTER 2018-04-07 01:45 | Inpatient (IN) | payer MEDICARE ==
[2018-04-07] VITALS (7 sets, daily range): BP systolic 105–152; BP diastolic 54–78
[~2018-04-07] VITALS: Ht 182.9 cm; Wt 108.4 kg
--- NOTE | ~2018-04-07 | EKG ---
[place], [place] ELECTROCARDIOGRAM REPORT NAME: MARILYN MIXON UNIT #: [id number] ROOM: [place] [address] DOCTOR: JORGE DRAFT REPORT BIRTHDATE: [birth year] [facility] Test Date: 2018-04-16 Test Time: 06:54:58 Pat Name: MARILYN MIXON Department: Room: [place] [address] Gender: M Proposal Consultant: Tanvi Pugh : 1930 Requested By: LONG GAMBOA Order Number: [id number] Reading MD: Evan Milton MD Measurements Intervals [place] Rate: 70 P: [place]: QRS: -39 QRSD: 100 T: 4 QT: 384 QTc: 415 Interpretive Statements Atrial fibrillation Left axis deviation Incomplete right bundle branch block Baseline wander in lead(s) V6 Compared to ECG 04/07/2018 03:01:09 No significant change Electronically Signed On 04-16-2018 8:09:19 PST by Evan Milton MD CM:EKGRPT:ELECTROCARDIOGRAM REPORT [id number] LONG ROSENTHAL DRAFT REPORT LONG GAMBOA DO
--- NOTE | ~2018-04-07 | EKG ---
[place], [place] ELECTROCARDIOGRAM REPORT NAME: MARILYN MIXON UNIT #: [id number] ROOM: [place] [address] DOCTOR: JORGE DRAFT REPORT BIRTHDATE: [birth year] [facility] Test Date: 2018-04-16 Test Time: 04:24:30 Pat Name: MARILYN MIXON Department: Room: [place] [address] Gender: M Boiler Installer: Lara Murray : 1930 Requested By: LONG GAMBOA Order Number: [id number] Reading MD: Evan Milton MD Measurements Intervals [place] Rate: 88 P: [place]: QRS: -32 QRSD: 101 T: 4 QT: 373 QTc: 452 Interpretive Statements Atrial fibrillation Left axis deviation Incomplete right bundle branch block Low voltage, precordial leads RSR' in V1 or V2, probably normal variant Compared to ECG 04/07/2018 03:01:09 No significant change Electronically Signed On 04-16-2018 8:08:20 PST by Evan Milton MD CM:EKGRPT:ELECTROCARDIOGRAM REPORT [id number] LONG ROSENTHAL DRAFT REPORT LONG GAMBOA DO
--- NOTE | ~2018-04-07 | EKG ---
[place], [place] ELECTROCARDIOGRAM REPORT NAME: MARILYN MIXON UNIT #: [id number] ROOM: DOCTOR: EPIPHANY DRAFT REPORT BIRTHDATE: [birth year] [facility] Test Date: 2018-04-07 Test Time: 03:01:09 Pat Name: MARILYN MIXON Department: Room: Gender: M Proposal Director: : 1930 Requested By: MAYA FOFANA Order Number: [id number] Reading MD: Measurements Intervals [place] Rate: 77 P: NE: QRS: -19 QRSD: 114 T: 23 QT: 387 QTc: 438 Interpretive Statements Atrial fibrillation Incomplete right bundle branch block Low voltage, precordial leads Compared to ECG 04/01/2018 15:47:30 Incomplete right bundle-branch block now present Left-axis deviation no longer present CM:EKGRPT:ELECTROCARDIOGRAM REPORT 0301 0005 MAYA FOFANA MD EPIPHANY DRAFT REPORT MAYA FOFANA MD
--- NOTE | ~2018-04-07 | EKG ---
[place], [place] ELECTROCARDIOGRAM REPORT NAME: MARILYN MIXON UNIT #: [id number] ROOM: [place] [address] DOCTOR: JORGE DRAFT REPORT BIRTHDATE: [birth year] [facility] Test Date: 2018-04-16 Test Time: 10:30:10 Pat Name: MARILYN MIXON Department: Room: [place] [address] Gender: M Principle Industrial Hygienist: Tanvi Pugh : 1930 Requested By: LONG GAMBOA Order Number: [id number] Reading MD: Evan Milton MD Measurements Intervals [place] Rate: 100 P: [place]: QRS: -40 QRSD: 101 T: 13 QT: 404 QTc: 522 Interpretive Statements Atrial fibrillation Incomplete right bundle branch block Abnormal R-wave progression, late transition Baseline wander in lead(s) I Compared to ECG 04/07/2018 03:01:09 No significant change Electronically Signed On 04-16-2018 17:28:03 PST by Evan Milton MD CM:EKGRPT:ELECTROCARDIOGRAM REPORT 1030 [id number] OLNG ROSENTHAL DRAFT REPORT LONG GAMBOA DO
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
--- NOTE | ~2018-04-07 | EKG ---
[place], [place] ELECTROCARDIOGRAM REPORT NAME: MARILYN MIXON UNIT #: [id number] ROOM: [place] [address] DOCTOR: JORGE DRAFT REPORT BIRTHDATE: [birth year] [facility] Test Date: 2018-04-15 Test Time: 23:08:52 Pat Name: MARILYN MIXON Department: Room: [place] [address] Gender: M Planimeter Operator: Shasta Alves : 1930 Requested By: LONG GAMBOA Order Number: [id number] Reading MD: Evan Milton MD Measurements Intervals [place] Rate: 122 P: [place]: QRS: -38 QRSD: 100 T: 32 QT: 319 QTc: 455 Interpretive Statements Atrial fibrillation Incomplete RBBB and LAFB RSR' in V1 or V2, right VCD or RVH Artifact in lead(s) V1 and baseline wander in lead(s) V1 Compared to ECG 04/07/2018 03:01:09 No significant change Electronically Signed On 04-16-2018 8:06:01 PST by Evan Milton MD CM:EKGRPT:ELECTROCARDIOGRAM REPORT [id number] LONG ROSENTHAL DRAFT REPORT LONG GAMBOA DO
--- NOTE | ~2018-04-07 | CON ---
[place], [place] REPORT OF CONSULTATION NAME: MARILYN MIXON UNIT #: [id number] ROOM: [place] [address] DOCTOR: CECILIO ZAVALA MD BIRTHDATE: [birth year] DOS: 04/16/2018 PULMONARY CRITICAL CARE EVALUATION AND MANAGEMENT AND CONSULTATION CONSULTATION REQUESTED BY: Hospitalist services. REASON FOR CONSULTATION: For the assessment of symptoms of current unresponsiveness, hypotension, and possible sepsis. HISTORY OF PRESENT ILLNESS: This is an 87-year-old elderly male with history of dementia, has been noted with recent fall with some broken bones. He has been admitted to Behavioral Health Unit for the medical management of the explosive behavior disorder, major depression, and other symptoms management. He has been admitted to the telemetry floor on 04/07/2018. The patient has developed progressive change in mental status, developed findings of hypotension, respiratory distress, and chest congestion last night. He has been transferred to the Intensive Care Unit this morning for the medical management. This morning of assessment, the patient noted not responding to the vocal commands. Eyes was closed. The oxygen supplementation was given by the Venturi mask. Pulse ox saturation with that was noted maintain to a normal level more than 90%. He has been noted with some tachypnea as well. The patient does not answer questions. Jeter catheter noted in place. The patient has been also noted with hypotension, started on vasopressor therapy as Levophed. History could not be obtained from the patient. All the history, which is even though limited was reviewed by medical record documentation by the other physician's notes. Until yesterday, he has been noted stable on the medical floor awaiting for [facility] facility prior to deterioration of the current respiratory status and others. PAST MEDICAL HISTORY: Noted with: 1. Atrial fibrillation. 2. BPH. 3. Coronary artery disease. 4. Alzheimer's dementia. 5. COPD. 6. Major depression. 7. Gastroesophageal reflux. 8. Essential hypertension. 9. TIA. 10. Intermittent explosive disorder. 11. Macrocytic anemia. 12. Moderate obesity. PAST SURGICAL HISTORY: Reported: 1. Cardiac catheterization and coronary artery stents insertion. 2. Coronary artery bypass grafting. MEDICATIONS: The medications, which has been currently administered at this time of assessment in the Intensive Care Unit were use of Levophed, metoprolol tartrate, intravenous normal saline, DuoNeb, Risperdal, trazodone, Namenda, [place], [place] REPORT OF CONSULTATION NAME: MARILYN MIXON UNIT #: [id number] ROOM: [place] [address] DOCTOR: GROVER HSU MD,[facility] BIRTHDATE: [birth year] aspirin, Exelon, rivastigmine tartrate, Flomax, Lipitor, Keppra, Eliquis 5 mg b.i.d., IV vancomycin, IV Zosyn, and Levaquin. DRUG ALLERGIES: THE PATIENT IS ALLERGIC TO FLAGYL, ALLERGIC REACTIONS WERE UNKNOWN. SOCIAL HISTORY: Unknown. FAMILY HISTORY: Unknown as well. PHYSICAL EXAMINATION: GENERAL: The patient is an 87-year-old white male patient currently noted with decreased responsiveness. No vocal commands. Withdraw is somewhat decreased with deep painful stimuli. Height of 6 feet, weight of 227 pounds, and BMI of 30.8. VITAL SIGNS: The vital signs of the patient, temperature of 102 degrees Fahrenheit was recorded to normal temperature. The patient noted afebrile prior to that until yesterday. The respiratory rate was noted as 40-35. The blood pressure of 75/42-103/84. The heart rate was 120 beats per minute with sinus tachycardia. Intake is limited at the present time. Total intake in the last 24 hours is 800 mL. Urine output is ____ mL. Pulse oxygen saturation on 50% Venturi mask is 95% saturation, prior to that on room air yesterday 91%-94% saturation recorded. HEENT: On examination, [id number] obesity. Head was atraumatic. Eyes closed. NECK: Supple. Oral mucosa was dry. CARDIOVASCULAR SYSTEM: S1, S2 is audible. LUNGS: Noted moderate decreased breath sounds, scattered rhonchorous breathing. There were no crackles. There was no wheezing heard. ABDOMEN: Soft. Moderate obesity. Hyperactive bowel sounds. CENTRAL NERVOUS SYSTEM: The patient with decreased responsiveness. VISIBLE SKIN: No lesions or rashes. MUSCULOSKELETAL: Without any acute deformities. LABORATORY DATA: Influenza A and B nasal washing antigens noted negative this morning. Troponin of this morning of 0.157. CBC this morning, WBC count is 7.3, hemoglobin is 11.7, hematocrit is 36.4, platelet count is 171,000, 81% segmented neutrophils. CMP this morning, BUN is 20, creatinine is 2.11, glucose is 130, and potassium is 5.4. Troponin first set is 0.114. The phosphorus is 1.9. The lactic acid was 2.8 earlier. Arterial blood gas yesterday evening on 2 liters, pH of 7.43, pCO2 of 39, and pO2 of 73. CBC that was done yesterday evening, normal WBC count at that time. BMP on 04/11/2018 noted as normal BUN and creatinine. IMAGING DATA: Chest x-ray that was done on 04/13/2018 was reviewed, does not show an acute pulmonary disease. The chest x-ray that was obtained yesterday evening was noted with increased interstitial marking, small bilateral pleural effusions. A chest x-ray was done this morning at 8:19 a.m. just prior to my assessment was reviewed from the PACS images, multi-lumen catheter noted in place to right internal jugular vein without any new changes as compared to the [place], [place] REPORT OF CONSULTATION NAME: MARILYN MIXON UNIT #: [id number] ROOM: [place] [address] DOCTOR[facility] [birth year] previous chest x-ray. IMPRESSION: 1. The patient has been currently noted with progressive acute respiratory failure, possibility of aspiration pneumonia with congestive heart failure, rule out acute myocardial injury. 2. Congestive heart failure secondary to interstitial edema, possible acute myocardial injury. 3. Acute kidney injury. 4. Hypotension multiorgan system failure, possible combination from sepsis with septic shock and other etiologies. 5. Moderate obesity as well noted in the past history. 6. The patient with anemia of chronic disease. 7. The patient with history of dementia and multiple other medical problems. 8. The patient with altered mental status secondary to the acute sepsis and hypoperfusion is very likely. PLAN OF MANAGEMENT: The patient needs to be intubated at this time. He has been already asked for transfer to [facility] for neuro assessment and further care at this time. Continue current broad-spectrum intravenous antibiotics, michelle culture will be assessed as well. Other additional treatment changes will be made based on progression of the illness. Other usual therapy, plan of management, and care plan as well as in progress. Supportive care, other therapy, and plan of care. Total time in pulmonary critical care evaluation and management was 39 minutes. CECILIO NESS MD CM:CONSTR:REPORT OF CONSULTATION [id number] 04/17/18 0035 interface
[~2018-04-07 01:45] MED LIST changes: +ALLOPURINOL300 MG PO; +APRESOLINE25 MG PO; +ASPIRIN ADULT L81 M1 PO; +ATIVAN0.5 MG PO; +BREO ELLIPTA 11 EACH INH; +CEFUROXIME AXE250 MG PO; +CELEXA20 MG PO; +ELIQUIS2.5 M1 PO; +GOOD NEIGHBOR P20 MG PO; +KEPPRA500 MG PO; +KLOR-CON M2020 ME1 PO; +LOPRESSOR25 MG PO; +LOSARTAN POTASS50 M1 PO; +MEMANTINE HCL10 MG PO; +MIRTAZAPINE15 M2 PO; +NAMENDA-5 PO; +OLANZAPINE2.5 MG PO; +PRAVACHOL40 MG PO; +PREDNISONE5 MG PO; +RIVASTIGMINE TAR3 M1 PO; +TAMSULOSIN HCL0.4 MG PO; +TRAZODONE50 MG PO
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
[2018-04-07 03:08] LABS: BASO % 0.2 % (0.0-1.0); EOS # 0.5 10*3/uL (0.0-0.4); EOS % 3.9 % (1.0-4.0); HEMATOCRIT 36.9 % (42.0-52.0); HEMOGLOBIN 12.3 g/dl (14.0-18.0); LYMPH # 2.9 10*3/uL (1.3-4.4); LYMPH % 23.2 % (27.0-41.0); MEAN CELL VOLUME 100.8 fl (80.0-94.0); MEAN CORPUSCULAR HGB 33.6 pg (27.0-31.0); MEAN CORPUSCULAR HGB CONC 33.3 g/dl (33.0-37.0); MEAN PLATELET VOLUME 10.4 fl (9.6-12.3); MONO # 0.9 10*3/uL (0.1-1.0); MONO % 7.3 % (3.0-9.0); NEUT % 64.9 % (47.0-73.0); PLATELET COUNT AUTOMATED 235 10*3/uL (130-400); RED BLOOD COUNT 3.66 10*6/uL (4.50-5.90); RED CELL DISTRI WIDTH 14.1 % (0-14.5); WHITE BLOOD COUNT 12.3 10*3/uL (4.8-10.8)
[2018-04-07 03:17] LABS: INTERNATIONAL NORM RATIO 1.1 (2.0-3.5)
--- NOTE | 2018-04-07 03:17 | NUR ---
PT GIVEN WARM BLANKET UPON HIS REQUEST
[2018-04-07 03:23] LABS: ALBUMIN 3.2 gm/dl (3.1-4.5); ALKALINE PHOSPHATASE 90 U/L (45-117); BUN 12 mg/dl (7-24); CHLORIDE 110 mmol/L (98-107); POTASSIUM 3.9 mmol/L (3.5-5.1); SGOT/AST 28 IU/L (3-35); SGPT/ALT 24 U/L (12-78); SODIUM 144 mmol/L (136-145); TOTAL PROTEIN 6.2 gm/dL (6.4-8.2)
--- NOTE | 2018-04-07 07:20 | NUR ---
PT IS AWAKE, PT STATES "I NEED OFF THIS HARD ER BED." PT STATED TO THE PT I WOULD CALL AND SEE WHNE HE IS GOING UPSTAIRS OR I WILL GET HIM AN IN PT BED.
--- NOTE | 2018-04-07 07:32 | NUR ---
PT TRYING TO GET UP OUT OF BED, PT WILL TIGHLY GRAP THE BEDRAILS , THIS IS NOT SEIZURE ACTIVITY TO ME. PT THEN WAS POINTING TO WRITE, I WAS NOT ABLE TO UNDERSTAND HIS WRITING, SO THEN THE PT SPOKE " I WANT OFF THIS BED". SUPERVISIOR WAS CALLED AND THE PT IS UNABLE TO TRANSPORTED UPSTAIRS AT THIS POINT, THEY WILL BRING A IN PATIENT BED DOWN, WHICH IS GREAT SO I MAY TURN ON THE BED ALARM.
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
--- NOTE | 2018-04-07 08:31 | NUR ---
PT ADMISTERED A TYLEMNOL FOR C/O BACK PAIN. PT IS RESTING QUIETLY AT THIS TIME. 1:1 REMAINS AT THE BED SIDE.
--- NOTE | 2018-04-07 09:45 | NUR ---
SPOKE WITH JOAQUIN QURESHI, SHE STATES SHE WILL BE IN THE SEE WHAT SHE CAN DO . HOWEVER SINCE THE PT WAS REFUSHED TO [facility] DUE TO THE FACT THAT [facility] STATES HE HAS NO INSURANCE.
--- NOTE | 2018-04-07 10:26 | NUR ---
KING WITH PT DAUGHTER, SHE STATES THAT SHE WOULD LIKE HIM PLACED [place]OME[place] IN [place] BECAUSE THAT WHERE HE IS FROM. DAUGHTER STATES THAT PT'S IN INSURANCE WAS THOUGH ALEXANDRE KABA 02-05-08, STATED TODAY ATHEM IS HIS NEW INSURANCE AFTER TODAY. SHE STATES SHE IS NOT ABLE TO PROVIDED A CARD OR ANY INFORMATION AT THIS TIME. SUPERVISIOR NOTIFIED.
--- NOTE | 2018-04-07 11:04 | NUR ---
JOAQUIN QURESHI HERE TO SEE PT. ATTEMPTING TO OBTAIN PT INSURANCE INFORMATION.
--- NOTE | 2018-04-07 11:24 | NUR ---
PT RESTING WITH HIS EYES CLOSED, METAL WIRE TECHNICIAN JOAQUIN QURESHI CONTINES TO WORK ON PLACEMENT, ATTEMPTING TO CLARIFIY PT NEW INSURANCE AT THIS TIME.
--- NOTE | 2018-04-07 11:40 | NUR ---
PT ADMINISTERED MEDICATIN AND LUNCH WAS ORDER. PT WATCHING TV AND IS CALM AT THIS TIME. IN VIEW OF NURSING STATION.
--- NOTE | 2018-04-07 12:00 | NUR ---
PT WATCHING TV, REMAINS CALM AND COOPERTIVE AT [facility] TIME, 1:1 REMOVED, DR SHETTY NOTIFIED AND IS AGREEABLE. PT IN VIEW FROM THE NURSEWS STATION, WILL MONITOR.
--- NOTE | 2018-04-07 12:54 | NUR ---
PT GIVEN EXTRA BLANKET PER REQUEST. PT REFUSING TO EAT LUNCH TRAY AT THIS TIME. STATES "I WANT SUGAR WATER IN MY IV AND I HAVE A 6 MONTH PRESCRIPTION OF PERCOCET I WANT IT NOW".
--- NOTE | 2018-04-07 13:38 | NUR ---
PT HURLED LUNCH TRAY OUT DOOR INTO HALLWAY, SCREAMING OBSENITIES. AFTER THIS OUTBURST PT LYING BACK IN BED EYES CLOSED.
--- NOTE | 2018-04-07 14:55 | NUR ---
NURSE TO NURSE REPORT GIVEN TO THIS RN.PT CURRENTLY ADMITTED INPATIENT AWAITING ROOM ASSIGNMENT OR POSSIBLY BEING SENT TO OUTSIDE FACILITY FOR BEHAVIORAL ISSUES.
--- NOTE | 2018-04-07 15:08 | NUR ---
PER INTERNAL SALESPERSON, PT NOT TO BE ADMITTED TO [facility] OR OUR [facility]. PT AWAITING PLACEMENT TO [facility].JOAQUIN QURESHI IS WORKING ON PLACEMENT.
--- NOTE | 2018-04-07 15:51 | NUR ---
PT REPOSITIONED IN BED.PT REQUESTING PAIN MEDICATION.
--- NOTE | 2018-04-07 15:53 | NUR ---
DAUGHTER, ARLYN RIVAS, CALLED WITH [phone], PASSWORD "[email or web address]".
--- NOTE | 2018-04-07 15:55 | NUR ---
PT ATTEMPTING TO GET OUT OF BED. REDIRECTED EASILY BACK TO BED, REPOSITIONED. COOPERATIVE AT THIS TIME. ADMINISTERED TYLENOL FOR PAIN PER HIS REQUEST. AGREEABLE TO HAVE DINNER ORDERED.
[2018-04-07 16:22] LABS: BILIRUBIN NEGATIVE (NEGATIVE); BLOOD NEGATIVE (NEGATIVE); CLARITY CLEAR (CLEAR); COLOR YELLOW (YELLOW); GLUCOSE NEGATIVE (NEGATIVE); KETONE NEGATIVE (NEGATIVE); LEUKO ESTERASE NEGATIVE (NEGATIVE); NITRITE NEGATIVE (NEGATIVE); PH 5.5 (5.0-9.0); UROBILINOGEN 0.2 E.U./dl (0.2-1.0)
--- NOTE | 2018-04-07 16:37 | NUR ---
PT DAUGHTER AT BEDSIDE AND UPDATED ON CURRENT PLAN OF CARE FOR PT.
--- NOTE | 2018-04-07 16:48 | NUR ---
PT ATTEMPTING TO GET OUT OF BED.PT BECOMING AGGITATED WITH DAUGHTER.PT REPOSITIONED IN BED AND REORIENTED TO SURROUNDINGS.
--- NOTE | 2018-04-07 16:57 | NUR ---
PT REPOSITIONED IN BED.PROVIDED MEAL TRAY.AWAITING TRANSFER TO [facility].
--- NOTE | 2018-04-07 17:06 | NUR ---
Unable to verify home medications with patients home pharmacy due to the holiday, they were closed.
[2018-04-07 17:14] LABS: BACTERIA TRACE; EPITHELIAL CELLS 0-3
[2018-04-07 17:15] LABS: WBC 0-2 wbc/hpf (0-5)
--- NOTE | 2018-04-07 17:30 | NUR ---
A 87, admitted to 5E, under the services of HUAN Reyes DO with a diagnosis of Intermittent Explosive Disorder. Chief complaint is Impaired Mobility. Patient arrived via stretcher from ER. Monitor applied. Initial assessment completed. Vital signs taken and recorded. HUAN REYES DO notified of admission to the unit. Orders received. See assessment for past medical history, medications and allergies. Patient and/or family oriented to unit. [address] visitation policy reviewed. Clothing/patient valuable form completed. YESICA BARBOZA
--- NOTE | 2018-04-07 18:25 | NUR ---
Med list updated with daughter Karthik Alberto.
--- NOTE | 2018-04-07 18:26 | NUR ---
Notified Dr. Gallegos of updated home med list.
--- NOTE | 2018-04-07 20:53 | NUR ---
Received a call from [facility] [employer] that patients heart rate dropped to 44. When I assessed patient he was asleep. HR increased to high 50's-60's.
[2018-04-08] VITALS: BP 132/54
--- NOTE | 2018-04-08 01:55 | NUR ---
PATIENT MEDICATED WITH TYLENOL FOR COMPLAINTS OF GENERALIZED PAIN. WILL MONITOR FOR EFFECTIVENESS. CALL LIGHT IN REACH.
[2018-04-08 06:19] LABS: BASO % 0.3 % (0.0-1.0); EOS # 0.6 10*3/uL (0.0-0.4); EOS % 7.2 % (1.0-4.0); HEMATOCRIT 36.1 % (42.0-52.0); HEMOGLOBIN 12.1 g/dl (14.0-18.0); LYMPH # 2.6 10*3/uL (1.3-4.4); LYMPH % 29.8 % (27.0-41.0); MEAN CELL VOLUME 101.1 fl (80.0-94.0); MEAN CORPUSCULAR HGB 33.9 pg (27.0-31.0); MEAN CORPUSCULAR HGB CONC 33.5 g/dl (33.0-37.0); MEAN PLATELET VOLUME 10.4 fl (9.6-12.3); MONO # 0.8 10*3/uL (0.1-1.0); MONO % 9.2 % (3.0-9.0); NEUT # 4.6 10*3/uL (2.3-7.9); PLATELET COUNT AUTOMATED 212 10*3/uL (130-400); RED BLOOD COUNT 3.57 10*6/uL (4.50-5.90); RED CELL DISTRI WIDTH 13.9 % (0-14.5); WHITE BLOOD COUNT 8.7 10*3/uL (4.8-10.8)
[2018-04-08 06:38] LABS: ALBUMIN 2.8 gm/dl (3.1-4.5); CREATININE 1.51 mg/dL (0.70-1.30); POTASSIUM 4.1 mmol/L (3.5-5.1)
[2018-04-08 06:40] LABS: TOTAL PROTEIN 5.6 gm/dL (6.4-8.2)
--- NOTE | 2018-04-08 07:49 | NUR ---
Nursing screen and Occupational Therapy referral received. Thank you. Ida Stevens OTR/l
[2018-04-08 08:00] VITALS: BP 128/70
--- NOTE | 2018-04-08 08:00 | NUR ---
PHYSICAL THERAPY PAtient evaluatd on 4, full evaluation to follow. Continue with PT as per plan of care with fall, alarm and recent aggitated precautions. Please note that no aggitation noted with PT evaluation: patient was polite, cooperative and pleasant. May requrie SNF. PAient is high complexity via chart review, tests and evaluation: 80409. Thank you for this referral. Rosey Garcia,PT
--- NOTE | 2018-04-08 08:10 | NUR ---
MEDICATED WITH PRN PO TYLENOL FOR HEAD/NECK/BACK/LEFT HIP AND LEG PAIN.
--- NOTE | 2018-04-08 08:56 | NUR ---
Occupational Therapy evaluation completed on 5 with full eval to follow. Precautions include impaired cognition,fall risk; bed alarm, IV UE. Patient was pleasant and cooperative for evaluation. He c/o being cold and did not want to sit in recliner for breakfast. Patient is moderate complexity level 32212 via chart review, testing and evaluation. Recommend OT per pOC and discharge to in patient memory care center to provide dementia care and assist patient in best ability to function. THank you for this referral. Ida Stevens OTR/l
--- NOTE | 2018-04-08 09:30 | NUR ---
PRN PO TYLENOL EFFECTIVE; PATIENT RESTING QUIETLY.
--- NOTE | 2018-04-08 11:52 | NUR ---
PT WAS RECENTLY DISCHARGED FROM [facility] AT THE [facility]. WENT HOME WITH DAUGHTER. PT UNABLE TO PROVIDE ANY INFORMATION TO ME ABOUT ADLS OR WHO CARES FOR HIM DUE TO CONFUSION. WILL CONTINUE TO FOLLOW.
[2018-04-08 12:00] VITALS: BP 137/64
--- NOTE | 2018-04-08 14:06 | NUR ---
PHYSICAL THERAPY Nursing screen received. PT orders also received. Thank you. Rosey French,PT
--- NOTE | 2018-04-08 14:20 | NUR ---
MARILYN MIXON [id number] Please refer to the physician's history and physical for past medical history, comorbid conditions, and allergies. Diagnosis: IMPAIRED MOBILITY AND ADLs, METABOLIC Spencer Score: 17,LOW OR NO RISK WOUND DESCRIPTIONS: Location of the wound: right wrist Type of wound: skin tear Thickness: Full Size: 1.3cm x 0.4cm x 0.1cm Tunneling: none Undermining: none Sinus Tract: none Presence of Exudate: Serosanguineous Amount: Light Color: Red, yellow Odor: None Periwound Skin Appearance: Normal Wound edges: approximated Pain (associated with wound): none at time of assessment How does patient state this happened? patient stated it was from his cat Location of the wound: left forearm Type of wound: skin tear Thickness: Full Size: 1.1cm x 5.5cm x <0.1cm Tunneling: none Undermining: none Sinus Tract: none Presence of Exudate: none Amount: None Color: Brown, red Odor: None Periwound Skin Appearance: Normal Wound edges: closed Pain (associated with wound): none at time of assessment How does patient state this happened? pt stated it was from his cat Surface the patient is resting on: Isoflex SKIN PREVENTION RECOMMENDATION: 1. Pressure redistribution support surface as appropriate 2. Elevate heels 3. Remove boots/TEDS every shift and reapply 4. Head of bed 30 degrees as tolerated 5. Assess nutrition and hydration 6. Manage moisture 7. Avoid the use of containment devices while in bed 8. Use absorptive products on surfaces limit layers of linens on bed 9. Turn and reposition every 1-2 hours in bed and every 1 hour in chair as tolerated 10. Weight shifts every 15 minutes while up in chair 11. Offloading with pillows or device to keep heels elevated off bed 12. Monitor skin at least every shift 13. Inspect under medical devices twice a day WOUND TREATMENT RECOMMENDATIONS: Clarify skin tear orders: Cleanse left forearm and right wrist with nss and apply sureprep around the wound therahoney to wound bed and cover with optifoam gentle.
--- NOTE | 2018-04-08 14:24 | NUR ---
Recommend follow up for wound care in outpatient setting patient refused at this time.
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
--- NOTE | 2018-04-08 15:11 | NUR ---
Dr. Cunningham notified of wound care recommendations.
--- NOTE | 2018-04-08 15:30 | NUR ---
Sunshine from [facility] here to do onsite. Given information for referral for SNF/LTC Placement. Provided with U stay information as well.
[2018-04-08 16:00] VITALS: BP 147/57
--- NOTE | 2018-04-08 18:41 | NUR ---
MEDICATED WITH PRN PO TYLENOL FOR LEFT LEG/HIP AND BACK PAIN.
[2018-04-08 20:00] VITALS: BP 121/65
[2018-04-09] VITALS: BP 154/68
--- NOTE | 2018-04-09 01:48 | NUR ---
24 HR chart check completed.
[2018-04-09 08:00] VITALS: BP 144/72
--- NOTE | 2018-04-09 08:12 | NUR ---
Patient referral faxed to Jesenia at [facility] in [facility] to their Behavioral locked snf. Asked to start precert, will have to wait for auth.
--- NOTE | 2018-04-09 08:25 | NUR ---
MEDICATED WITH PRN PO TYLENOL FOR HEAD/NECK/BACK/TAILBONE/LEFT HIP AND LEG PAIN.
--- NOTE | 2018-04-09 08:45 | NUR ---
OT NOTE Pt was seen this A.M. 1:1 for 20 minute OT session. Upon arrival pt was supine in bed, pt identified by name and . Pt had reports of 10/10 pain in his "tail bone and L hip". Pt transferred supine to sit EOB with Stan for assist with UB. Pt then completed sit to stand transfers from bed level with Stan and use of w/w for UE support. Functional mobility completed to the bathroom with CGA and use of w/w where he stood sink side while washing his hands and face with CGA. Pt had one LOB that occured backwards while standing without UE support that required Stan to correct. Throughout mobility pt had LOB with turns that required Stan to correct. Educated pt on safe turning techniques with the walker. Pt was left sitting upright in recliner with call light in hand, tray table in place, and body alarm on for safety. Continue with rec D/C plan to SNF. TARSHA Joyce/Major
--- NOTE | 2018-04-09 09:15 | NUR ---
PHYSICAL THERAPY Patient seen this am 1:1 for therapy visit and was supine in bed following nursing visit upon therapist arrival. Patient reports 8/10 low back / tail bone pain and transfers supine to sit EOB with MOD A x 1. Patient peformed several sit to stand transfers, use of wh walker support, demonstrating a little "slouched" standing posture. Patient ambulates with wh walker, 45'x 1, demonstrating antalgic gait pattern, decreased stride and difficulty safely navigating 90 / 180 degree turns. Patient returned to bedside chair and remained with call light, tray table and body alarm as breakfast tray arrived. Will continue per PCO as tolerated, total treatment time 14 minutes. Luiz Baum, FILTERING MACHINE TENDER
--- NOTE | 2018-04-09 09:32 | NUR ---
PRN PO TYLENOL EFFECTIVE, PER PATIENT.
--- NOTE | 2018-04-09 10:04 | NUR ---
PATIENT CONFUSED, PULLED OUT IV AND DRESSINGS TO BILATERAL ARM SKIN TEARS, STATES IS GOING HOME TODAY, PATIENT IS NOT GOING HOME TODAY.
--- NOTE | 2018-04-09 10:48 | NUR ---
Completed PASS/RR for [facility] behavioral unit. Pass/rr tripped for further review by [facility] of mental health. Faxed to [phone] for approval. Waiting on clearance for PASS/RR and Precert for care home. Will follow
[2018-04-09 12:00] VITALS: BP 142/69
--- NOTE | 2018-04-09 13:38 | NUR ---
MEDICATED WITH PRN PO TYLENOL FOR BACK AND LEFT HIP PAIN.
--- NOTE | 2018-04-09 14:13 | NUR ---
BUCKLE SEWER FROM [facility] IN TO SPEAK WITH THE PATIENT RE: ADMISSION THERE UPON DISCHARGE.
--- NOTE | 2018-04-09 15:20 | NUR ---
PATIENT AGITATED AND CONFUSED; ATTEMPTING TO GET UP FREQUENTLY, STATES LEAVING TODAY, WANTS PHYSICIAN TO FAX PAPERS TO HIS COMPUTER FOR A HELICOPTER RIDE HOME, STATES HAS ALL HIS EXERCISE EQUIPMENT AT HOME. UNABLE TO REORIENT OR CALM HIM, CONTINUES TO TRY TO DIAL HIS DOCTOR ON THE TELEPHONE. OBTAINED ORDER FOR GEODON 10MG IM X 1, ADMINISTERED AT THIS TIME.
[2018-04-09 16:00] VITALS: BP 110/82
--- NOTE | 2018-04-09 16:02 | NUR ---
PATIENT RESTING IN BED; DARRYL EFFECTIVE.
--- NOTE | 2018-04-09 18:10 | NUR ---
PT DAUGHTER ARLYN CALLED PER PT REQUEST. NO ANSWER VOICEMAIL LEFT TO CALL UNIT.
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
--- NOTE | 2018-04-09 19:29 | NUR ---
DR ALVAREZ AWARE OF PATIENT WALKING HALLS, REFUSING TO GO BACK IN TO HIS ROOM AND YELLING AT THE NURSES
--- NOTE | 2018-04-09 19:46 | NUR ---
PATIENT MEDICATED WITH PRN TYLENOL ORDERED FOR C/O FULL BODY ACHES/PAINS
--- NOTE | 2018-04-09 19:47 | NUR ---
DR ALVAREZ NOTIFIED OF PATIENT CALMED DOWN AND IN HIS ROOM IN A WHEEL CHAIR. PATIENT REQUESTING SOMETHING TO HELP HIM SLEEP TONIGHT, STATING HE DID NOT SLEEP AT ALL LAST NIGHT. DR ALVAREZ STATED THEY WILL BE UP TO SEE HIM.
--- NOTE | 2018-04-09 19:54 | NUR ---
DR ALVAREZ AND DR HE ON FLOOR TO SEE PATIENT AT THIS TIME
[2018-04-09 20:00] VITALS: BP 141/81
--- NOTE | 2018-04-09 20:27 | NUR ---
PATIENT MEDICATD WITH 10 MG GEODON ORDERD INTO RIGHT THIGH. TOOK 2200 MEDICATIONS WITHOUT ISSUE. DAUGHTER AT BEDSIDE. WILL MONITOR.
--- NOTE | 2018-04-09 21:15 | NUR ---
PATIENT THROWING CUP OF POP ACROSS HALLWAY AND SCREAMING THAT HE IS LEAVING. DR HE NOTIFIED AND CAME TO FLOOR TO SEE PATIENT. ORDERS FOR IM BENADRYL GIVEN.
--- NOTE | 2018-04-09 21:33 | NUR ---
PATIENT MEDICATED WITN IM BENADRYL ORDERD IN RIGHT DELTOID. WILL MONITOR.
--- NOTE | 2018-04-09 23:16 | NUR ---
NOTIFIED DR ALVAREZ OF PATIENT REQUESTING A SLEEPING PILL BECAUSE HE CAN NOT SLEEP. STATED THEY WILL PUT SOMETHING IN.
[2018-04-09] MEDS ORDERED: TRAZODONE100 MG PO (23:44)
--- NOTE | 2018-04-09 23:44 | NUR ---
ADDED TRAZADONE TO PATIENTS HOME MEDICATION LIST PER MEDICATION CLAIM HISTORY AND DR ALVAREZ
[2018-04-10] VITALS: BP 154/86
--- NOTE | 2018-04-10 04:12 | NUR ---
PATIENT SLEEPING. NO S/S OF DISTRESS NOTED. RESPIRATIONS EASY/REG ON RA. CALL LIGHT IN REACH
--- NOTE | 2018-04-10 06:00 | NUR ---
TOOK AM MEDICATION WITHOUT ISSUE. PATIENT PLEASANT/COOPERATIVE. NO VOICED COMPLAINTS AT THIS TIME. CALL LIGHT IN REACH
--- NOTE | 2018-04-10 07:10 | NUR ---
PATIENT RESTING IN BED AT THIS TIME ON LEFT SIDE WITH EYES CLOSED. RESPIRATIONS ARE EASY AND REGULAR. NO DISTRESS IS NOTED. BED IS IN LOWEST POSITION WITH WHEELS LOCKED. CALL LIGHT IS WITHIN REACH. WILL MONITOR.
[2018-04-10 08:00] VITALS: BP 142/76
--- NOTE | 2018-04-10 10:14 | NUR ---
OT NOTE Attempted to see pt this A.M. for OT session and upon arrival pt was eating his breakfast. Will check back at a later time/date. TARSHA Joyce/Major
--- NOTE | 2018-04-10 10:35 | NUR ---
PHYSICAL THERAPY Patient was seen this am 1:1 for therapy visit and was standing in hallway outside his room upon therapist arrival. Patient was visibly agitated with several hospital staff attending to patient regarding d/c planning issue. Therapist spoke with patient and was able to redirect him back to his room, 100'x 1, use of wh walker, CGA, as he demonstrated Poor safety / navigation, decreased stride and forward, flexed posture. Patient remained seated EOB as Dr Martines arrived and was a little calmer at this time. Will continue per POC as tolerated, total treatment time 13 minutes. Luiz Baum, INSTITUTIONAL COOK
--- NOTE | 2018-04-10 11:01 | NUR ---
CODE RHEA CALLED AT THIS TIME DUE TO AGRESSIVE BEHAVIOR AND PATIENT TRYING TO LEAVE THE FLOOR. ONE TIME ORDERS WERE GIVEN FOR HALDOL. MEDICATION WAS GIVEN IN THE LEFT THIGH AND PATIENT WAS TRANSPORTED BACK TO ROOM. PATIENT CONTINUES TO BE VERBALLY AGRESSIVE. BUT IS NO LONGER COMBATIVE. BED/BODY ALARM INTACT. WILL CONTIUE TO MONITOR.
--- NOTE | 2018-04-10 11:30 | NUR ---
This patient has been accepted to [facility] behavioral unit, however his PASS/RR has tripped and must be cleared by the [place] Department of Mental Health prior to discharge. Also, patient has [employer] insurance that requires a precert, this is has been started, but waiting on auth.
--- NOTE | 2018-04-10 11:58 | NUR ---
Spoke with [facility]. They stated that are still accepting this patient, but are waiting on level 2 PASSRR clearance and precert. will follow
[2018-04-10 12:00] VITALS: BP 94/51
--- NOTE | 2018-04-10 12:08 | NUR ---
Spoke to Anastacio at [facility] . Pt. requested Level 2 Face to Face assessment. Tessa Snell Hair Sample Matcher assigned to Case. Once Completed letter for approval to enter nursing facility will arrive.
--- NOTE | 2018-04-10 12:56 | NUR ---
PATIENT RESTING IN BED SUPINE WITH EYES CLOSED. RESPIRATIONS ARE EASY AND REGULAR. NO DISTRESS IS NOTED. CALL LIGHT IS WITHIN REACH. BED ALARM INTACT. WILL CONTINUE TO MONITOR.
--- NOTE | 2018-04-10 15:07 | NUR ---
OCCUPATIONAL THERAPY CO-SIGN I approve of the Occupational Therapy notes written above. TRISTIAN MI OTR/Major
[2018-04-10 16:00] VITALS: BP 121/64
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
--- NOTE | 2018-04-10 18:40 | NUR ---
WOOD HEEL FLAP INSERTER FROM [facility] HERE AT THIS TIME TO INTERVIEW PATIENT FOR PASS/RR.
[2018-04-10 20:00] VITALS: BP 149/89
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
--- NOTE | 2018-04-10 20:51 | NUR ---
PATIENT SCREAMING IN ROOM ON TELEPHONE. THIS NURSE WALKED IN AND PATIENT THREW THE PHONE ACROSS THE ROOM STATING "THESE FERS DONT KNOW WHAT THE F THEIR DOING" STATES THAT "THEY WONT EVEN CALL MY DAUGHTER" EXPLAINED TO PATIENT THAT HE DOES NOT NEED TO THROW HIS PHONE AND THAT WE NEED TO CALL HIS DAUGHTER FROM THE NURSES STATION AND WE HAVE TRIED 3 TIMES. PATIENT CALMED DOWN AND VOICED UNDERSTANDING. WILL CONTINUE TO MONITOR.
[2018-04-11] VITALS: BP 120/60
--- NOTE | 2018-04-11 04:44 | NUR ---
PATIENT SLEEPING. NO S/S OF DISTRESS NOTED. RESPIRATIONS EASY/REG ON RA. BED ALARM ON, CALL LIGHT IN REACH. WILL MONITOR.
--- NOTE | 2018-04-11 06:01 | NUR ---
PATIENT TOOK 0600 MEDICATIONS WITHOUT ISSUE. MEDICATED WITH PRN TYLENOL ORDERED FOR C/O FULL BODY ACHES/PAINS. BED ALARM INTACT, CALL LIGHT IN REACH
[2018-04-11 07:24] LABS: BASO % 0.4 % (0.0-1.0); EOS # 0.5 10*3/uL (0.0-0.4); EOS % 6.5 % (1.0-4.0); HEMATOCRIT 34.2 % (42.0-52.0); HEMOGLOBIN 11.2 g/dl (14.0-18.0); LYMPH # 2.2 10*3/uL (1.3-4.4); LYMPH % 29.7 % (27.0-41.0); MEAN CELL VOLUME 102.1 fl (80.0-94.0); MEAN CORPUSCULAR HGB 33.4 pg (27.0-31.0); MEAN CORPUSCULAR HGB CONC 32.7 g/dl (33.0-37.0); MEAN PLATELET VOLUME 10.6 fl (9.6-12.3); MONO # 0.7 10*3/uL (0.1-1.0); MONO % 9.2 % (3.0-9.0); NEUT # 4.1 10*3/uL (2.3-7.9); NEUT % 53.8 % (47.0-73.0); PLATELET COUNT AUTOMATED 201 10*3/uL (130-400); RED BLOOD COUNT 3.35 10*6/uL (4.50-5.90); RED CELL DISTRI WIDTH 14.3 % (0-14.5); WHITE BLOOD COUNT 7.5 10*3/uL (4.8-10.8)
[2018-04-11 07:52] LABS: BUN 12 mg/dl (7-24); CHLORIDE 108 mmol/L (98-107); CREATININE 1.18 mg/dL (0.70-1.30); POTASSIUM 3.8 mmol/L (3.5-5.1); SODIUM 144 mmol/L (136-145)
[2018-04-11 08:00] VITALS: BP 147/61
--- NOTE | 2018-04-11 08:03 | NUR ---
INITIAL ASSESSMENT COMPLETE. PT RESTING COMFORTABLY IN BED WITH EYES CLOSED.AROUSES EASILY. RESPS EASY ON RA,SPO2 96%.VOICES NO NEEDS.POLITE.DROWSY.NO DISTRESS NOTED.CALL LIGHT IN REACH.
--- NOTE | 2018-04-11 10:32 | NUR ---
REFUSED TO TAKE MEDS AT THIS TIME. DROWSY.WILL REATTEMPT LATER TO MEDICATE PT. NO DISTRESS NOTED. RESPS EASY.BED ALARM INTACT. BED IN LOW POSITION. CALL LIGHT IN REACH.
--- NOTE | 2018-04-11 12:40 | NUR ---
PT AWAKE AND EATING BREAKFAST NOW. FRIEND VISITING AT BEDSIDE. PLEASANT,POLITE,COOPERATIVE W CARE. MEDICATED PER JUN. PT SEEMS TO BE ALERT AND ORIENTED X3.NOP DISTRESS NOTED. BED ALARM INTACT. CALL LIGHT IN REACH.
--- NOTE | 2018-04-11 15:01 | NUR ---
Patient resting quietly with no c/o discomfort. Respirations easy and regular. Vital signs stable. No overt distress. MARIA CHAMBERS
[2018-04-11 16:00] VITALS: BP 123/52
--- NOTE | 2018-04-11 17:51 | NUR ---
TYLENOL 650 MG GIVEN FOR C/O GENERALIZED PAIN,10/14.
[2018-04-11 20:00] VITALS: BP 125/75
[2018-04-12] VITALS: BP 135/75
[2018-04-12 08:00] VITALS: BP 148/72
[2018-04-12 16:00] VITALS: BP 119/71
[2018-04-12 20:00] VITALS: BP 131/68
[2018-04-12 20:20] VITALS: BP 118/58
--- NOTE | 2018-04-12 20:25 | NUR ---
PT MEDICATED WITH PO TYLENOL FOR C/O GENERALIZED PAIN AND PAIN IN L RIBS. PATIENT STATES "IT'S BEEN HURTING, BUT IT HURTS A LITTLE NOW." PATIENT ALSO MEDICATED WITH PO TRAZODONE PER REQUEST. WILL MONITOR EFFECTIVENESS. CALL LIGHT IN REACH. BED ALARM INTACT.
--- NOTE | 2018-04-12 21:09 | NUR ---
PATIENT MEDICATED WITH PO DULCOLAX FOR C/O SOME CONSTIPATION. PATIENT HAD A SMALL BM EARLIER, BUT STATES HE FEELS LIKE HE IS HAVING TROUBLE GOING. WILL MONITOR EFFECTIVENESS. CALL LIGHT LEFT IN REACH. BED ALARM INTACT. SIDE RAILS UP X2.
--- NOTE | 2018-04-12 23:55 | NUR ---
PATIENT MEDICATED WITH PO ATIVAN FOR C/O SOME RESTLESSNESS/ANXIOUSNESS. STATES EARLIER TRAZODONE HELPED HIM GET TO SLEEP BUT HE FEELS ANXIOUS AT THIS TIME. WILL MONITOR EFFECTIVENESS. CALL LIGHT IN REACH.
[2018-04-13] VITALS: BP 123/65
--- NOTE | 2018-04-13 01:14 | NUR ---
EARLIER MEDICATION APPEARS EFFECTIVE. PT LAYING IN BED WITH EYES CLOSED. RESPIRATIONS EASY. NO S/S OF DISTRESS NOTED. WILL MONITOR. CALL LIGHT LEFT INR EACH.
[2018-04-13 08:00] VITALS: BP 125/79
--- NOTE | 2018-04-13 09:24 | NUR ---
OT NOTE Pt was seen this A.M. 1:1 for 24 minute OT session. Upon arrival pt was supine in bed, pt identified by name and . Pt had reports of increased fatigue due to not sleeping well last night. Pt transferred supine to sit EOB with maxA. While sitting EOB pt completed UB/LB bathing. Doffed gown with Stan, completed UB bathing with mod-maxA and constant verbal prompts for sequencing. LB bathing completed with maxA. Pt also donned new gown with Stan. Throughout entire grooming task pt required modA due to P+ sitting balance throughout with LOb occuring backwards and to both R and L side. Sit to stand transfers completed from bed level with modA and use of w/w for UE support. Functional mobility completed around the room to the bathroom and back with Stan and use of w/w with verbal prompts for walker safety. Pt transferred sit to supine with Stan and was repositioned with maxA X 2. Pt was left supine in bed with call light in hand, tray table in place, and bed alarm activated for safety. Continue with rec D/C plan to SNF. TARSHA Joyce/Major
--- NOTE | 2018-04-13 09:35 | NUR ---
PHYSICAL THERAPY Patient seen this am 1:1 for therapy visit and was supine in bed upon therapist arrival. Patient reports feeling a little cold and voices mild c/o of LBP, 3/10 this morning. Patient also stated he did not sleep much last night and as tired with increased generalized LE weakness. Patient transfers supine to sit EOB with MAX A, demonstrating R side lean, but was able to self correct seated posture following v/c. Patient transfers sit to stand, Min/Mod and ambulates with use of wh walker, 65'x 1, CGA/Min, demonstrating uneven stride, Poor upright posture and increased fatigue upon return to EOB sit. Patient becomes more unsteady with fatigue and transfers back to supine in bed, while remaining with call light, tray table and bed alarm for safety. Patient received heated blankets secondary to feeling cold and was very thankful and pleasant this session. Will continue per POC as tolerated, total treatment time 16 minutes. Luiz Baum, HAND LAMINATOR
--- NOTE | 2018-04-13 10:56 | NUR ---
Patient level 2 pass/rr has cleared. Faxed updated clinicals and PT/OT notes to [facility] for precert. Waiting for auth.
[2018-04-13 12:00] VITALS: BP 126/78
--- NOTE | 2018-04-13 15:55 | NUR ---
PATIENT UP IN CHAIR, RESTING. BODY ALARM ON. WILL CONTINUE TO MONITOR.
[2018-04-13 16:00] VITALS: BP 100/52
--- NOTE | 2018-04-13 17:00 | NUR ---
PT GIVEN ATIVAN FOR ANXIETY.
[2018-04-13 20:00] VITALS: BP 108/64
--- NOTE | 2018-04-13 20:10 | NUR ---
PATIENT HAD SMALL BM IN BRIEF. PATIENT CLEANED UP, NEW LINENS PROVIDED, BRIEF CHANGED. PATIENT PULLED UP AND REPOSITIONED IN BED. PATIENT DENIES ANY COMPLAINTS OF PAIN BUT IS STILL C/O DRY MOUTH. PATIENT ENCOURAGED TO EAT DINNER STILL SITTING ON BEDSIDE TABLE. FOOD WARMED UP AND SET UP FOR PATIENT. BED LEFT LOCKED IN LOW POSITION, SIDE RAILS UP X3, BED ALARM INTACT, CALL LIGHT IN REACH.
--- NOTE | 2018-04-13 20:54 | NUR ---
PATIENT FOUND SCOOTED DOWN IN BED AGAIN. PATIENT ASSISTED TO SIT UP ON SIDE OF BED AND MOVE SELF TOWARDS TOP OF BED USING WALKER & ASSIST X2. REPOSITIONED IN COMFORT. PATIENT VERY WEAK TODAY AND COMPLAINING OF PAIN IN L RIBS WHERE HE SAYS THE "POWER WASHER KICKED THEM IN." WILL MEDICATE PT WITH PRN PAIN MEDICATION PER ORDER.
--- NOTE | 2018-04-13 21:17 | NUR ---
NOTIFIED OF PATIENT'S COUGHING DURING MED PASS. RN GAVE PILLS WHOLE ONE BY ONE USING TUCK CHIN TECHNIQUE AND APPLESAUCE. THIS SEEMED TO WORK. HOWEVER, WHEN PATIENT DRINKING LIQUIDS ALONE, RN NOTICED COUGHING. PATIENT HAD NO ISSUES WITH TAKING PILLS LAST EVENING WITH THIS RN. ALSO, NEW FINE CRACKLES HEARD IN BL POSTERIOR BASES OF LUNG BRITTON. DISCUSSED THIS WITH . STATES HE WILL TAKE A LOOK AT HIS CHART AND PUT IN ORDERS NEEDED. ALSO DISCUSSED PHARMACY'S CONCERNS ABOUT BIOTENE ORDER WITH DIRECTIONS UD. ATTEMPTED TO CLARIFY DIRECTIONS WITH . STATES HE WILL CHANGE THIS.
--- NOTE | 2018-04-13 21:43 | NUR ---
HERE TO SEE PATIENT.
[2018-04-14] VITALS: BP 103/51
[2018-04-14 05:30] VITALS: BP 150/78
[2018-04-14 07:00] LABS: BASO % 0.3 % (0.0-1.0); EOS # 0.2 10*3/uL (0.0-0.4); EOS % 3.7 % (1.0-4.0); HEMATOCRIT 36.3 % (42.0-52.0); HEMOGLOBIN 11.8 g/dl (14.0-18.0); LYMPH # 1.5 10*3/uL (1.3-4.4); LYMPH % 23.4 % (27.0-41.0); MEAN CELL VOLUME 102.8 fl (80.0-94.0); MEAN CORPUSCULAR HGB 33.4 pg (27.0-31.0); MEAN CORPUSCULAR HGB CONC 32.5 g/dl (33.0-37.0); MEAN PLATELET VOLUME 10.9 fl (9.6-12.3); MONO # 0.9 10*3/uL (0.1-1.0); NEUT # 3.5 10*3/uL (2.3-7.9); NEUT % 57.1 % (47.0-73.0); PLATELET COUNT AUTOMATED 190 10*3/uL (130-400); RED BLOOD COUNT 3.53 10*6/uL (4.50-5.90); RED CELL DISTRI WIDTH 14.5 % (0-14.5); WHITE BLOOD COUNT 6.2 10*3/uL (4.8-10.8)
[2018-04-14 07:13] LABS: BUN 14 mg/dl (7-24); CHLORIDE 109 mmol/L (98-107); CREATININE 1.25 mg/dL (0.70-1.30); POTASSIUM 3.8 mmol/L (3.5-5.1); SODIUM 143 mmol/L (136-145)
[2018-04-14 08:00] VITALS: BP 116/50
--- NOTE | 2018-04-14 08:02 | NUR ---
Received call from [facility]. They stated the [employer] insurance came back and said patient has improved, therefore they are denying snf. [facility] is keeping the bed open for this patient until peer to peer is complete. Peer to peer information: Call Dr. Ram @ [phone]. Alysa Aragon notified.
--- NOTE | 2018-04-14 08:32 | NUR ---
24 HR CHART CHECK COMPLETE
--- NOTE | 2018-04-14 08:55 | NUR ---
OT NOTE Pt was seen this A.M. 1:1 for 25 minute OT session. Upon arrival pt was supine in bed, pt identified by name and . Pt had no complaints at this time. Pt transferred supine to sit EOB with maxA X 2 and education on use of bed rails for increased I. While sitting EOB pt donned socks and shoes with modA and verbal prompts for encouragement. Pt then completed sit to stand transfer from bed level with modA X 2 followed by functional mobility into the bathroom with Stan and verbal prompts due to poor walker safety and safety awareness. There he transferred on to standard commode with modA and off standard commode with maxA, clothing management completed with maxA and toilet hygiene completed with maxA. Pt then stood sink side while washing his face and hands with CGA, pt had two LOB that occured backwards that required Stan to correct. Thorughout pt required constant verbal prompts to correct his posture. Pt was left sitting upright in recliner with call light in hand, tray table in place, and body alarm activated for safety. Continue with rec D/c plan to SNF. TARSHA Joyce/Major
--- NOTE | 2018-04-14 09:55 | NUR ---
PHYSICAL THERAPY Patient seen this am 1:1 for therapy visit and was just awakening in bed upon therapist arrival. Patient reports no new c/o's at this time and needed a little time to complete all task due to just waking up feeling a little tired. Patient transfers supine to sit EOB with Max A x 2, then sit to stand with MOD A. Patient ambulates with use of wh walker, 30'x 1, CGA, demonstrating very slow cintia while over reaching for walker. Patient receieved v/c to improve walker safety / navigation and returned to bedside chair with call light, tray table and body alarm for safety as late breakfast tray arrived. Will continue per POC as tolerated, total treatment time 13 minutes. Luiz aBum, UROLOGIST PHYSICIAN
--- NOTE | 2018-04-14 11:30 | NUR ---
PHYSICAL THERAPY Patient seen 1:1 for second therapy visit and was sitting up in bedside chair upon therapist arrival. Patient request use of bathroom and transfers sit to stand Min A, while ambulating 25'x 2, wh walker, CGA, demonstrating both decreased stride and upright posture. Patient performed toilet transfer, Mod A due to low seat height and needed v/c to improve safe transfer technique, along with safe walker navigation in tight bathroom spaces. Patient returned to bedside chair and reamined with call light, tray table and body alarm. Will continue per POC as tolerated, total treatment time 17 minutes. Luiz Baum, PERIPHERAL VASCULAR TECH
--- NOTE | 2018-04-14 11:51 | NUR ---
WHILE ADMINISTERING PO MEDICATIONS WITH APPLESAUCE AND SIPS OF WATER PT WAS COUGHING QUITE A BIT. CALLED DR ERICKSON AND REQUESTED A SPEECH EVAL.
[2018-04-14 12:00] VITALS: BP 128/54
--- NOTE | 2018-04-14 15:01 | NUR ---
SPEECH PATHOLOGY Clinical swallowing evaluation completed as per orders due to possible aspiration. Medical hx is significant for intermittent explosive disorder, Alzheimer's, COPD and GERD. Patient has been noted coughing with medications. He currently receives a regular diet and thin liquids. For assessment he was alert and with generalized weakness. He was cooperative and able to follow commands. He was assessed with puree, solid and thin liquids. He displayed safe tolerance for puree and thin liquids. With solid consistency he displayed slow mastication and oral residue which was cleared with liquid wash. Recommend a mechanical soft diet and thin liquids. Recommend safe swallow precautions such as upright positioning for meals, small bites/sips and alternating liquid and solid. Follow up therapy is recommended to ensure safe tolerance of diet and adherence to safe swallow precautions. Results and baldomero. were shared with patient and his daugther who was present during assessment. Nursing staff also educated. Refer to report in [facility] for further information. Thank you for this referral. JAGDEEP SMITH MSCCC-MACADAM RAKER
--- NOTE | 2018-04-14 15:01 | NUR ---
Contacted elfego Gonsalez from [place] at and discussed peer to peer information. Explained this needed to be done by 12 Noon, but no specific time was given to me. She stated the time was never passed on to her either and that she would question Jesenia about it. I explained I was faxing time sensitive documents from Dr. Villagran that need to be faxed to the insurance company number they've been faxing to as soon as possible. Sunshine stated she will make sure the fax is sent SWAPNA and do what ever she can to continue to work towards an approval for this patient. Will follow
[2018-04-14 16:55] VITALS: BP 127/59
--- NOTE | 2018-04-14 19:30 | NUR ---
ASSUMED CARE OF PT AT THIS TIME. PT ASLEEP IN BED. RESPIRATIONS EASY. NO S/S OF DISTRESS NOTED. WILL MONITOR. CALL LIGHT LEFT IN REACH. BED ALARM INTACT.
--- NOTE | 2018-04-14 23:53 | NUR ---
NOTIFIED OF PATIENT'S WHEEZING AND SOB. NEW ORDERS FOR BREATHING TX TO FOLLOW.
[2018-04-15] VITALS: BP 118/55
--- NOTE | 2018-04-15 02:32 | NUR ---
PATIENT ASLEEP IN BED. RESPIRATIONS EASY. NO S/S OF DISTRESS NOTED. WILL MONITOR. BED LOCKED IN LOW POSITION. BED ALARM INTACT. CALL LIGHT LEFT IN REACH.
--- NOTE | 2018-04-15 05:30 | NUR ---
ADAIR MAYORGA HERE TO SEE PT. DSGs TO BL ARMS/WRISTS CHANGED PER ORDER. PT TOLERATED WELL. WILL CONTINUE TO MONITOR. CALL LIGHT LEFT IN REACH.
--- NOTE | 2018-04-15 07:03 | NUR ---
ADAIR MAYORGA HERE TO SEE PT. DSGs TO BL ARMS/WRISTS CHANGED PER ORDER. PT TOLERATED WELL. WILL CONTINUE TO MONITOR. CALL LIGHT LEFT IN REACH.
--- NOTE | 2018-04-15 07:09 | NUR ---
MARILYN MIXON [id number] Please refer to the physician's history and physical for past medical history, comorbid conditions, and allergies. Diagnosis: IMPAIRED MOBILITY AND ADLs, METABOLIC Spencer Score: 17,LOW OR NO RISK WOUND DESCRIPTIONS: Location of the wound: right wrist Type of wound: skin tear Thickness: Full Size: 1.6cm x 0.4cm x 0.1cm Tunneling: none Undermining: none Sinus Tract: none Presence of Exudate: Serosanguineous Amount: Light Color: Red, brown Odor: None Periwound Skin Appearance: Normal Wound edges: approximated Pain (associated with wound): none at time of assessment Location of the wound: left forearm Type of wound: skin tear Thickness: Full Size: 1.5cm x 4.5cm x <0.1cm Tunneling: none Undermining: none Sinus Tract: none Presence of Exudate: none Amount: None Color: Brown, red Odor: None Periwound Skin Appearance: Normal Wound edges: closed Pain (associated with wound): none at time of assessment Intact scab noted to right top of hand. No redness surrounding area. No drainage noted at time of assessment. Surface the patient is resting on: Isoflex SKIN PREVENTION RECOMMENDATION: 1. Pressure redistribution support surface as appropriate 2. Elevate heels 3. Remove boots/TEDS every shift and reapply 4. Head of bed 30 degrees as tolerated 5. Assess nutrition and hydration 6. Manage moisture 7. Avoid the use of containment devices while in bed 8. Use absorptive products on surfaces limit layers of linens on bed 9. Turn and reposition every 1-2 hours in bed and every 1 hour in chair as tolerated 10. Weight shifts every 15 minutes while up in chair 11. Offloading with pillows or device to keep heels elevated off bed 12. Monitor skin at least every shift 13. Inspect under medical devices twice a day WOUND TREATMENT RECOMMENDATIONS: Continue current skin tear orders. Recommend follow up for wound care in outpatient setting patient being discharge to another facility at this time.
[2018-04-15 08:00] VITALS: BP 136/70
--- NOTE | 2018-04-15 08:00 | NUR ---
OT NOTE Pt was seen this A.M. 1:1 for 25 minute OT session. Upon arrival pt was supine in bed, pt identified by name and . Pt had complaints of increased fatigue due to "not sleeping for the last three days." Pt transferred supine to sit EOB with modA for assist with UB. While sitting EOB pt donned shoes with modA due to poor forward flexion and sequencing with task. Then challenged pt's sitting balance while having him weight shift, cross midline, and bilateral integration for enhanced safety and I, pt was able to maintain F+ sitting balance throughout. Pt then completed sit to stand transfer from bed level with modA and use of w/w for UE support. Functional mobility then completed into the bathroom with Stan and use of w/w with one LOB occuring during turn. There pt transferred on/off standard commode with mod-maxA due to low surface. Clothing management completed with maxA and toilet hygiene compelted with maxA. Pt transferred back into bed sit to supine with Stan for assist with LE's. Pt was left supine in bed with call light in hand, tray table in place, and bed alarm activated for safety. Continue with rec D/C plan to SNF. TARSHA Joyce/Major
--- NOTE | 2018-04-15 08:30 | NUR ---
PHYSICAL THERAPY Patient seen this am 1;1 for therapy visit and was just awakening supine in bed upon therapsit arrival. Patient reports not sleeping that well again last night, which is now the past few nights he has reported this same c/o. Patient also reports no c/o's pain and transfers supine to sit EOB / sit to stand transfer with MOD A x 1. Patient ambulated 60'x 1, use of wh walker, Min/CGA, demonstrating slow, unsteady gait pattern with mild fatigue. Patient needed v/c to improve wh walker safety / navigation to avoid bumping into things, especially during tight 180 degree turns in room / bathroom. Patient returned to supine in bed and remained with call light, tray table and bed alarm for safety. Will continue per POC as tolerated, total treatment time 15 minutes. Luiz Baum, INVERTED BLOCK OPERATOR
--- NOTE | 2018-04-15 09:20 | NUR ---
SPEECH PATHOLOGY Patient was seen for treatment this am. This was conducted during breakfast meal. Patient was awake and alert this morning, sitting upright in bed. He fed himself breakfast with set up and minimal assist from clinician. Patient was oriented and able to answer questions appropriately during the session. He consumed soft foods and thin liquids, implementing safe swallow precautions. He displayed no overt difficulty with the meal, with no residue, cough or wet vocal quality. Intake was fair. Recommend patient remain on present diet for safety. As he tolerates this diet and uses safety precautions, continued dysphagia therapy is no longer warranted. Discharge at this time. Thank you for this referral. JAGDEEP SMITH MSCCC-FISCAL MANAGER
[2018-04-15 12:00] VITALS: BP 132/54
--- NOTE | 2018-04-15 12:07 | NUR ---
CALLED TO START EXPIDITED APPEAL ON PT AT [phone], THEY STATE THEY CAN NOT DO AN APPEAL UNTIL THEY HAVE DENIAL LETTER WITH REFERENCE NUMBER FOR DENIAL AND THEY HAVE NOT RECIEVED IT YET. WILL CONTINUE TO FOLLOW.
--- NOTE | 2018-04-15 15:00 | NUR ---
CALLED TO ROOM BY DAUGHTER, SHE STATES YOU DOES NOT THINK THAT PT NEEDS BEHAVIOR UNIT ANY LONGER AND SHE WOULD LIKE HIM TO GO TO A SKILLED UNIT CLOSER TO HOME AND NOT [facility]. EXPLAINED THAT INSURANCE HAS DENIED SKILLED STAY AND WE ARE GOING TO APPEAL IT WHEN WE GET DENIAL LETTER THEN WE WILL WORK ON IT.
[2018-04-15 16:00] VITALS: BP 135/59
--- NOTE | 2018-04-15 16:14 | NUR ---
SPOKE WITH MEGAN FROM [facility], SHE STATES SHE THINKS THEY ONLY GOT A PHONE CALL AND NOT A LETTER ABOUT DENIAL OF SNF STAY FROM [facility] BUT SHE WILL CALL [facility] TO BE SURE AND CALL ME BACK.
--- NOTE | 2018-04-15 16:20 | NUR ---
MEGAN FROM [facility] RETURNED CALL AND STATED THEY DID NOT RECIEVE A LETTER ONLY A PHONE CALL FROM [facility] WITH DENIAL.
[2018-04-15 20:00] VITALS: BP 154/68
--- NOTE | 2018-04-15 20:30 | NUR ---
PT ORDERED TO CTA AND CXR DUE TO HYPOXIA. LUNGS SOUNDS WERE DIM AT PER ASSESSMENT. FOLLOW UP ORDERS VIA WILL CONTINUE TO MONITOR PT
--- NOTE | 2018-04-15 20:37 | NUR ---
NOTIFIED OF PT'S CONDITION. WILL BE UP TO SEE HIM.
--- NOTE | 2018-04-15 20:59 | NUR ---
STAT CTA ORDERD. RADIOLOGY NOTIFED THAT AFTER HAVING A CXR ON THE , ANOTHER CXR MUST BE ORDERED 24 HOURS AFTER CTA PER POLICY. TINY GAMBOA
--- NOTE | 2018-04-15 21:00 | NUR ---
WAS NOTIFIED THAT CXR MUST BE ORDERED. ORDERS PENDING
[2018-04-15 21:09] LABS: ABG BASE EXCESS 2.3 mmol/L (-2.0-2.0); ABG HCO3 25.4 mmol/l (22-26); ABG O2 SATURATION 94.8 % (95-97); ARTERIAL BLOOD GAS PCO2 39.4 mmHg (35-45); ARTERIAL BLOOD GAS PH 7.435 (7.35-7.45); ARTERIAL BLOOD GAS PO2 73.2 mmHg (80-90)
[2018-04-15 21:22] LABS: BASO % 0.1 % (0.0-1.0); EOS % 0.2 % (1.0-4.0); HEMATOCRIT 38.9 % (42.0-52.0); HEMOGLOBIN 12.9 g/dl (14.0-18.0); LYMPH # 0.8 10*3/uL (1.3-4.4); LYMPH % 8.8 % (27.0-41.0); MEAN CELL VOLUME 101.6 fl (80.0-94.0); MEAN CORPUSCULAR HGB 33.7 pg (27.0-31.0); MEAN CORPUSCULAR HGB CONC 33.2 g/dl (33.0-37.0); MEAN PLATELET VOLUME 10.6 fl (9.6-12.3); MONO # 0.4 10*3/uL (0.1-1.0); NEUT # 7.2 10*3/uL (2.3-7.9); NEUT % 85.3 % (47.0-73.0); PLATELET COUNT AUTOMATED 177 10*3/uL (130-400); RED BLOOD COUNT 3.83 10*6/uL (4.50-5.90); RED CELL DISTRI WIDTH 14.2 % (0-14.5); WHITE BLOOD COUNT 8.5 10*3/uL (4.8-10.8)
--- NOTE | 2018-04-15 21:23 | NUR ---
PT RESTARTED ON CARDIZEM DRIP. DRIP IS RUNNING AT 5ML/HR. BP WAS 118/78. WILL RECHECK IN TWO HOURS
[2018-04-15 21:40] LABS: ALBUMIN 3.3 gm/dl (3.1-4.5); ALKALINE PHOSPHATASE 91 U/L (45-117); BUN 16 mg/dl (7-24); CHLORIDE 106 mmol/L (98-107); CREATININE 1.26 mg/dL (0.70-1.30); PHOSPHOROUS 1.8 mg/dL (2.5-4.9); SGOT/AST 35 IU/L (3-35); SGPT/ALT 22 U/L (12-78); SODIUM 141 mmol/L (136-145); TOTAL PROTEIN 6.5 gm/dL (6.4-8.2)
[2018-04-15 21:41] LABS: POTASSIUM 4.8 mmol/L (3.5-5.1); TROPONIN I < 0.015 ng/ml (<0.045)
--- NOTE | 2018-04-15 22:30 | NUR ---
CXR CAME BACK SHOWING CONGESTOIN. FLUIDS WERE ORDERED TO NORMALIZE LACTIC ACID BUT IMMIDIATLY STOPPED. 50CC INPUT. LASIX ORDERED 40MG IV PER DR. HE. ATTEMPTING TO GET UC. WILL CONTINUE TO MONITOR PT
--- NOTE | 2018-04-15 23:48 | NUR ---
BP CHECKED BY RAH ABREU AND REPEATED BACK. 128/54. HR IN 110'S AT THIS TIME. CARDIZEM DRIP RATE STILL AT 5ML/HR. WILL CONTINUE TO MONITOR PT.
[2018-04-16] VITALS (14 sets, daily range): BP systolic 75–126; BP diastolic 33–93
--- NOTE | 2018-04-16 00:13 | NUR ---
NOTIFIED OF LA AND TROP. NO NEW ORDERS VIA PHONE AT THIS TIME
--- NOTE | 2018-04-16 01:10 | NUR ---
NOTIFIED OF RECENT ASSESSMENT ON PT. ORDERED FOR ONE ONE TIME DOSE OF LASIX 40MG IV. ORDERS PENDING
--- NOTE | 2018-04-16 01:34 | NUR ---
DR. CARRANZA ON FLOOR. ORDERS ARE NOW NOT GIVE SECOND DOSE OF LASIX. SECOND DOSE CANCELED DUE TO NEW ORDERS. STATES MORNING TEAM WILL CHECK IT
--- NOTE | 2018-04-16 02:08 | NUR ---
NOTIANALIAED OF LA UP AT 2.8 NO NEW ORDERS AT THIS TIME.
--- NOTE | 2018-04-16 03:13 | NUR ---
NOTIFIED OF TROP. NO NEW ORDERS AT THIS TIME. WILL CONINUE TO MONITOR
[2018-04-16 05:51] LABS: ALBUMIN 2.7 gm/dl (3.1-4.5); CREATININE 2.11 mg/dL (0.70-1.30); PHOSPHOROUS 1.9 mg/dL (2.5-4.9); POTASSIUM 5.4 mmol/L (3.5-5.1)
[2018-04-16 05:54] LABS: BASO % 0.1 % (0.0-1.0); HEMATOCRIT 36.4 % (42.0-52.0); HEMOGLOBIN 11.7 g/dl (14.0-18.0); LYMPH % 8.7 % (27.0-41.0); MEAN CELL VOLUME 103.1 fl (80.0-94.0); MEAN CORPUSCULAR HGB 33.1 pg (27.0-31.0); MEAN CORPUSCULAR HGB CONC 32.1 g/dl (33.0-37.0); MEAN PLATELET VOLUME 10.8 fl (9.6-12.3); MONO % 9.1 % (3.0-9.0); NEUT # 9.2 10*3/uL (2.3-7.9); NEUT % 81.6 % (47.0-73.0); PLATELET COUNT AUTOMATED 171 10*3/uL (130-400); RED BLOOD COUNT 3.53 10*6/uL (4.50-5.90); RED CELL DISTRI WIDTH 14.2 % (0-14.5); WHITE BLOOD COUNT 11.3 10*3/uL (4.8-10.8)
[2018-04-16 05:55] LABS: TROPONIN I 0.144 ng/ml (<0.045)
--- NOTE | 2018-04-16 06:12 | NUR ---
CARDIOLOY ,JESUS AWARE OF CONSULT AND LATEST TROP READING. WILL CONTINUE TO MONITOR PT
--- NOTE | 2018-04-16 06:39 | NUR ---
DR. NESS MADE AWARE OF CONSULT. NO NEW ORDERS
[2018-04-16 06:49] LABS: BILIRUBIN NEGATIVE (NEGATIVE); BLOOD NEGATIVE (NEGATIVE); CLARITY CLEAR (CLEAR); COLOR YELLOW (YELLOW); GLUCOSE NEGATIVE (NEGATIVE); KETONE NEGATIVE (NEGATIVE); LEUKO ESTERASE NEGATIVE (NEGATIVE); NITRITE NEGATIVE (NEGATIVE); PH 5.5 (5.0-9.0); SPECIFIC GRAVITY 1.015 (1.005-1.030); UROBILINOGEN 0.2 E.U./dl (0.2-1.0)
--- NOTE | 2018-04-16 06:59 | NUR ---
PT TRANSFERRED TO ICU BED 10. REPORT GIVEN TO TRAVIS ABREU.
[2018-04-16 07:01] LABS: CALCIUM OXALATE CRYSTALS TRACE; EPITHELIAL CELLS 0-2
--- NOTE | 2018-04-16 07:28 | NUR ---
ARRIVED AT 0650 FROM 5E, FOLLOWING CHANGE OF CONDITION THERE WITH HYPOTENSION, TEMP ELEVATION AND TROPONIN ELEVATION. TEMP 102.8 R. PT UNRESPONSIVE TO ANY STIMULI. BOLUS INFUSING RT ARM FROM 5E. ONE UNSUCCESSFUL ATTEMPT AT ANOTHER PERIPHERAL IV SITE. RESIDENT TEAM HERE. AWARE OF VITAL SIGNS. #18 VILLAR PLACED WITH CLEAR YELLOW URINE OBTAINED. SPECIMENS TO LAB. SEE ALL APPROPRIATE INTERVENTIONS.
--- NOTE | 2018-04-16 07:41 | NUR ---
DR SHETTY CALLED [facility] ANSWERING SERVICE ABOUT CONSULT. DR LIAO HAS ATTEMPTED TO CALL PT'S DAUGHTER FOR CONSENT FOR CENTRAL LINE. NO ANSWER. DR ERICKSON IS PROCEDING WITH MLC PLACEMENT FOR NEED FOR IV ACCESS.
[2018-04-16 07:45] LABS: BILIRUBIN NEGATIVE (NEGATIVE); BLOOD NEGATIVE (NEGATIVE); CLARITY SL CLOUDY (CLEAR); COLOR YELLOW (YELLOW); GLUCOSE NEGATIVE (NEGATIVE); KETONE NEGATIVE (NEGATIVE); LEUKO ESTERASE NEGATIVE (NEGATIVE); NITRITE NEGATIVE (NEGATIVE); SPECIFIC GRAVITY 1.015 (1.005-1.030); UROBILINOGEN 0.2 E.U./dl (0.2-1.0)
--- NOTE | 2018-04-16 07:57 | NUR ---
I HAVE ASCERTAINED FROM THE 5TH FLOOR THAT THE NURSE WHO TRANSFERRED THE PATIENT TO ICCU WAS UNABLE TO REACH DAUGHTER EITHER AND THAT HE LEFT A MESSAGE ON HER PHONE. MLC PLACED BY DR ERICKSON. STAT PCXR ORDERED.
--- NOTE | 2018-04-16 08:12 | NUR ---
PHYSICAL THERAPY [facility] and will require new PT evaluation. No therapy services provided this date. Luiz Baum, COPIER FIELD SERVICE TECHNICIAN
--- NOTE | 2018-04-16 08:17 | NUR ---
Attempted to reach daughterKarthik, at [phone] with no success. Message left and asked for return call. SOY Navarro notified and will keep trying to get a hold of daughter.
--- NOTE | 2018-04-16 08:34 | NUR ---
Patient transferred to ICCU due to decline in medical status. Discharge OT at this time d/t decline. Consider re-order of Occupational Therapy when patient is stable and able to tolerate therapy. Thank you. Ida Stevens OTR/L
--- NOTE | 2018-04-16 08:39 | NUR ---
ECHO BEING DONE AT BEDSIDE. LEVOPHED STARTED AT 10MCG/MIN. TYLENOL SUPPOSITORY HAS BEEN GIVEN. DR COURTNEY IN AND OBSERVED THE ECHO AT BEDSIDE. ARRANGEMENTS ARE PENDING FOR TRANSFER TO [facility]. DR LIAO HAS BEEN ABLE TO TALK WITH DAUGHTER WHO IS ON HER WAY TO THE HOSPITAL.
--- NOTE | 2018-04-16 09:10 | NUR ---
DR NESS HAS VISITED, EXAMINED PT, UPDATED ON PLAN OF CARE.
[2018-04-16 09:21] LABS: BACTERIA 2+; CALCIUM OXALATE CRYSTALS TRACE; MUCOUS 2+
--- NOTE | 2018-04-16 09:33 | NUR ---
FAMILY HAS ARRIVED. DR ERICKSON HAS GIVEN EXPLANATIONS TO THEM. THEY ARE CALLING OTHER FAMILY MEMBERS. LEVOPHED HAS BEEN TITRATED TO 12MCG/MIN FOR PERSISTENT HYPOTENSION. IV FLUID BOLUS CONTINUES.
[2018-04-16] MEDS ORDERED: PANTOPRAZOLE SO40 MG PO (10:15)
--- NOTE | 2018-04-16 10:47 | NUR ---
[facility] HERE. PROPOFOL STARTED FOR SEDATION. UNABLE TO TAKE D/C PICTURES DUE TO URGENCY OF TRANSFER.
--- NOTE | 2018-04-16 10:49 | NUR ---
DR ERICKSON INTUBATED PT WITH A #7.5 ETT, 24 AT THE LIP. #16 SALEM SUMP ORALLY PLACED. ETOMIDATE ONLY USED FOR SEDATION FOR THE INTUBATION. SOFT RESTRAINTS APPLIED. CXR WAS DONE.
--- NOTE | 2018-04-16 10:55 | NUR ---
PT LEFT HOSPITAL VIA [facility] IN STABLE CONDITION. ALL OF HIS BELONGINGS WERE GIVEN TO HIS DAUGHTER, ARLYN.
--- NOTE | 2018-04-16 11:00 | NUR ---
[facility] CALLED WITH UPDATED REPORT AND THAT PT HAS LEFT THE FACILITY.
--- NOTE | 2018-04-17 07:57 | NUR ---
PHYSICAL THERAPY CO-SIGN I approve of the Phyical Therapy notes written above. LAST CHU PT
== END 2018-04-16 11:00 | disposition short-term general hospital (02) | DRG 871 ==
LOC: ED 01:45 → EDHOLD 05:01 → 5E 16:47 → EDHOLD 16:47 → 5E 16:50 → ICCU 04-16 06:49
PROVIDERS: Emergency Medicine Emergency Medical Services; Family Medicine; Internal Medicine; Student in an Organized Health Care Education/Training Program; ADMIT Internal Medicine
PROC: 02HV33Z Insertion of Infusion Device into Superior Vena Cava, Percutaneous Approach (ICD-10-PCS; principal; 2018-04-16)
PROC: 0BH17EZ Insertion of Endotracheal Airway into Trachea, Via Natural or Artificial Opening (ICD-10-PCS; principal; 2018-04-16)
PROC: B548ZZA Ultrasonography of Superior Vena Cava, Guidance (ICD-10-PCS; principal; 2018-04-16)
DX: A41.9 Sepsis, unspecified organism (principal); S72.92XA Unspecified fracture of left femur, initial encounter for closed fracture; J96.00 Acute respiratory failure, unspecified whether with hypoxia or hypercapnia; F23 Brief psychotic disorder; F02.81 Dementia in other diseases classified elsewhere, unspecified severity, with behavioral disturbance; I25.810 Atherosclerosis of coronary artery bypass graft(s) without angina pectoris; F33.9 Major depressive disorder, recurrent, unspecified; N17.9 Acute kidney failure, unspecified; Z74.09 Other reduced mobility; F91.9 Conduct disorder, unspecified; N40.0 Benign prostatic hyperplasia without lower urinary tract symptoms; D53.9 Nutritional anemia, unspecified; E87.8 Other disorders of electrolyte and fluid balance, not elsewhere classified; I71.2 Thoracic aortic aneurysm, without rupture; E66.9 Obesity, unspecified; I45.10 Unspecified right bundle-branch block; I50.9 Heart failure, unspecified; I48.2 Chronic atrial fibrillation; F63.81 Intermittent explosive disorder; I11.0 Hypertensive heart disease with heart failure; G30.9 Alzheimer's disease, unspecified; J44.9 Chronic obstructive pulmonary disease, unspecified; W18.39XA Other fall on same level, initial encounter; K21.9 Gastro-esophageal reflux disease without esophagitis; Z96.659 Presence of unspecified artificial knee joint; Z91.011 Allergy to milk products; Z88.8 Allergy status to other drugs, medicaments and biological substances; Z91.018 Allergy to other foods; Z79.82 Long term (current) use of aspirin; Z79.899 Other long term (current) drug therapy; Z86.73 Personal history of transient ischemic attack (TIA), and cerebral infarction without residual deficits; Z95.5 Presence of coronary angioplasty implant and graft; Z95.1 Presence of aortocoronary bypass graft; Y93.89 Activity, other specified; Y92.89 Other specified places as the place of occurrence of the external cause; Y99.8 Other external cause status; Z68.26 Body mass index [BMI] 26.0-26.9, adult

== ENCOUNTER 2021-05-15 14:59 | Emergency (ER) | payer MEDICARE ==
[~2021-05-15 14:59] MED LIST changes: +PANTOPRAZOLE SO40 MG PO; +TRAZODONE100 MG PO
== END 2021-05-15 21:27 | disposition home or self-care (01) ==
LOC: ED 14:59
DX: S92.251A Displaced fracture of navicular [scaphoid] of right foot, initial encounter for closed fracture (principal); S82.54XA Nondisplaced fracture of medial malleolus of right tibia, initial encounter for closed fracture; S92.151A Displaced avulsion fracture (chip fracture) of right talus, initial encounter for closed fracture; Z91.018 Allergy to other foods; Z88.8 Allergy status to other drugs, medicaments and biological substances; Z91.011 Allergy to milk products; Z79.899 Other long term (current) drug therapy; Z79.82 Long term (current) use of aspirin; Z90.49 Acquired absence of other specified parts of digestive tract; Z98.890 Other specified postprocedural states; W00.0XXA Fall on same level due to ice and snow, initial encounter; Y93.89 Activity, other specified; Y92.89 Other specified places as the place of occurrence of the external cause; Y99.8 Other external cause status